=== PATIENT | female | born 1990 | race Caucasian/White ===

== ENCOUNTER 2017-10-22 12:07 | Emergency (ER) | payer OTHER ==
--- OUTSIDE RECORDS SUMMARY | 2017-10-22 12:15 | XMS REPORT ---
:1990 External Reference #:[id number] Author Organization [facility] Address [address] [place] [address] Phone [phone] Care Team Providers Name Role Phone Bhakti Flood MD Care Team Information Flower Arranger Unavailable Payers Type Date Identification Numbers Payment Provider Subscriber Commercial Policy Number: [id number] [facility] Ann Gómez PayID: [id number] [address] [place] [address] [facility] Policy Number: [id number] Medicaid/[facility] Ann Gómez PayID: [id number] [address] [place] [address] Problems Date Description Provider Status Onset: 08/10/2016 Anxiety state Tobi Marrero JAY Active Onset: 08/10/2016 Viral hepatitis C Tobi Marrero [employer]WAITRESS Active Onset: 08/10/2016 Insomnia Tobi Marrero Active Onset: 08/10/2016 Tobacco user Tobi MarreroP Active Family History Date Family Member(s) Problem(s) Comments General Heart Disease Father 60 Mother 52 Children 3 First Daughter 4 Second Daughter 3 Third Daughter 10 Months OF 07/2016 Siblings None Social History Type Date Description Comments Marital Status Civil Partner Pets 1 cat Work Status Unemployed ETOH Use Denies alcohol use Smoking Patient is a former smoker Currently Active Patient is currently sexually active Allergies, Adverse Reactions, Alerts Date Description Reaction Status Severity Comments 07/24/2016 NKDA active Medications Medication Date Status Form Strength Qnty SIG Indications Ordering Provider Azithromycin 10/20/ Hx Tablets 250mg 6tabs z corey uad J20.9 Remigio, 2018 - Bhakti Stokes 10/24/ Prashanth 2018 Betamethasone 09/21/ Active Cream 0.05% 15gm apply to L20.9 [facility], Dipropionate 2018 affected [facility] M., area three M.D. times a day as needed Flonase Allergy 06/21/ Active Suspension 50mcg/Act 9.900 1 puff H69.90 [facility], Relief 2017 ml twice a day Ahmad M., as needed M.D. each nostril Ibuprofen 04/29/ Active Tablets 800mg 90tab 1 by mouth M25.561 [facility], 2017 s three times Ahmad M., a day as M.D. needed Keflex 07/27/ Hx Capsules 500mg 30cap 1 by mouth M25.561 [facility], 2018 - s three times Ahmad M., 08/06/ a day M.D. 2018 Bacitracin 07/27/ Hx Ointment 500Unit/G 30gm apply to M25.561 [facility], (External) 2018 - M affected [facility] 08/06/ area three M.D. 2018 times a day as needed till healed Prednisone 04/29/ Hx Tablets 20mg 18tab 3 tab by M25.561 [facility], 2017 - s mouth daily Ahmad M., 05/08/ 3 days, M.D. 2016 then 2 tab daily x 3 d , then 1 tab daily 3d No Active 10/08/ Hx Unknown Medications 2016 - 2016 Amoxicillin 10/08/ Hx Tablets 500mg 40tab 2 by mouth Remigio, 2017 - s twice a day Ahmad M., 10/16/ M.D. 2016 Amoxicillin 08/12/ Hx Tablets 500mg 30tab 1 by mouth Remigio, 2017 - s three times Ahmad M., 09/16/ a day M.D. 2016 Azithromycin 08/10/ Hx Tablets 250mg 6tabs take two [facility], 2017 - tablets by Ahmad M., 08/12/ mouth as M.D. 2016 one dose on the first day then take one daily thereafter x 4 days Amoxicillin 07/24/ Hx Tablets 500mg 30tab 1 by mouth Remigio, 2017 - s three times Ahmad M., 08/03/ a day M.D. 2016 Vital Signs Date Vital Result Comment 10/20/2017 BP Systolic 120 mmHg BP Diastolic 62 mmHg Height 67 inches 5'7" Weight 165.00 lb BMI (Body Mass Index) 25.8 kg/m2 Heart Rate 82 /min Body Temperature 98.0 F Respiratory Rate 18 /min 09/21/2017 BP Systolic 124 mmHg BP Diastolic 78 mmHg Height 67 inches 5'7" Weight 158.00 lb BMI (Body Mass Index) 24.7 kg/m2 Heart Rate 83 /min Respiratory Rate 18 /min 07/27/2017 BP Systolic 114 mmHg BP Diastolic 60 mmHg Height 67 inches 5'7" Weight 154.00 lb BMI (Body Mass Index) 24.1 kg/m2 Heart Rate 106 /min Body Temperature 98.6 F Respiratory Rate 18 /min 06/21/2017 BP Systolic 108 mmHg BP Diastolic 68 mmHg Height 67 inches 5'7" Weight 159.00 lb BMI (Body Mass Index) 24.9 kg/m2 Heart Rate 63 /min Respiratory Rate 18 /min 05/05/2017 BP Systolic 118 mmHg BP Diastolic 62 mmHg Height 67 inches 5'7" Weight 165.00 lb BMI (Body Mass Index) 25.8 kg/m2 Heart Rate 68 /min Respiratory Rate 18 /min 04/29/2017 BP Systolic 110 mmHg BP Diastolic 62 mmHg Height 67 inches 5'7" Weight 165.00 lb BMI (Body Mass Index) 25.8 kg/m2 Heart Rate 64 /min Respiratory Rate 16 /min 10/08/2016 BP Systolic 120 mmHg BP Diastolic 62 mmHg Height 67 inches 5'7" Weight 167.00 lb BMI (Body Mass Index) 26.2 kg/m2 Heart Rate 71 /min Body Temperature 97.7 F Respiratory Rate 18 /min 08/10/2016 BP Systolic 110 mmHg BP Diastolic 70 mmHg Height 67 inches 5'7" Weight 163.00 lb BMI (Body Mass Index) 25.5 kg/m2 Heart Rate 82 /min Respiratory Rate 18 /min 07/24/2016 BP Systolic 104 mmHg BP Diastolic 70 mmHg Height 67 inches 5'7" Weight 167.00 lb BMI (Body Mass Index) 26.2 kg/m2 Heart Rate 76 /min Respiratory Rate 20 /min Results Test Date Test Result H/L Range Note Monitor 14-Drug 08/10/2016 Amphetamine Screen, Negative ng/mL Cutoff= 1000 1 Class Profile Urine (MW) Barbiturates Screen, Urine Negative ng/mL Mwzwih=454 1 Benzodiazepines Screen, Urine Negative ng/mL Gotxjc=587 1 Cannabinoid Screen, Urine Negative ng/mL Cutoff=20 1 Cocaine (Metab.) Screen, Urine Negative ng/mL Eghwof=461 1 Opiate Screen, Urine Negative ng/mL Bnfnht=680 1, 2 Oxycodone/Oxymorphone, Urine Negative ng/mL Qxmhwa=030 1, 3 Phencyclidine Screen, Urine Negative ng/mL Cutoff=25 1 Methadone Screen, Urine Negative ng/mL Arhoph=983 1 Propoxyphene Screen, Urine Negative ng/mL Psdhqg=840 1 Meperidine Screen, Urine Negative ng/mL Dnscse=226 1, 4 Tramadol Screen, Urine Negative ng/mL Ewozai=100 1 Fentanyl, Urine Negative pg/mL Bbvgeb=1497 1, 5 Buprenorphine, Urine Negative ng/mL Cutoff=10 1 Creatinine, Urine 178.8 mg/dL 20.0-300.0 1 Specific Pierson 1.029 1 pH, Urine 6.4 4.5-8.9 1 Please Note: See Comment: 1, 6 Laboratory test finding 08/10/2016 PDF [id number] SEE IMAGE 1 1 [id number] 2 Opiate test includes Codeine, Morphine, Hydromorphone, Hydrocodone. 3 Test includes Oxycodone and Oxymorphone 4 This test was developed and its performance characteristics determined by [employer]. It has not been cleared or approved by the Food and Drug Administration. 5 Test includes Fentanyl and Norfentanyl This test was developed and its performance characteristics determined by [employer]. It has not been cleared or approved by the Food and Drug Administration. 6 Drug-test results should be interpreted in the context of clinical information. Patient metabolic variables, specific drug chemistry, and specimen characteristics can affect test outcome. Technical consultation is available if a test result is inconsistent with an expected outcome. ([email or web address] or call toll-free [phone]) Drug brands, if listed herein, are trademarks of their respective owners. Procedures Date CPT Code Description Status 10/20/2017 38982 Spirometry Completed 10/20/2017 35607 Tympanometry Completed 04/29/2017 58786 Tympanometry Completed 10/08/2016 75337 Spirometry Completed 10/08/2016 39437 Tympanometry Completed 08/10/2016 86782 Tympanometry Completed 07/24/2016 18470 Visual Screening Test Completed 07/24/2016 87675 Tympanometry Completed 07/24/2016 65996 Audiometry, Bekesy, Screening Completed Encounters Type Date Location Provider [facility] E/M Dx Office Visit 10/20/2017 9:45a [facility] Bhakti Flood M.D. 11073 M25.561 B18.2 F41.9 J30.9 G47.00 F17.211 L20.9 L66.2 J20.9 J01.40 R06.02 R05 R09.81 H92.03 Office Visit 09/21/2017 3:30p [facility] Bhakti Flood M.D. 32930 M25.561 B18.2 F41.9 J30.9 G47.00 F17.211 L20.9 N64.4 N61.0 L66.2 Office Visit 07/27/2017 9:15a [facility] Bhakti Flood M.D. 02377 M25.561 B18.2 F41.9 J30.9 G47.00 F17.211 L20.9 N64.4 N61.0 Z00.01 Office Visit 06/21/2017 4:15p [facility] Tobi Marrero [employer] WA[employer]/WAITRESS 27226 M25.561 H69.90 Office Visit 05/05/2017 4:00p [facility] Tobi Marrero [employer] WA[employer]/WAITRESS 19104 M25.561 Office Visit 04/29/2017 4:00p [facility] Bhakti Flood M.D. 91632 B18.2 F41.9 J30.9 G47.00 F17.211 M25.561 S83.61xA R05 R09.81 J00 Office Visit 10/08/2016 9:45a [facility] Bhakti Flood M.D. 63692 B18.2 F41.9 J30.9 G47.00 F17.211 H66.92 R05 R06.02 R09.81 J01.40 Office Visit 08/10/2016 11:30a [facility] Tobi Marrero [employer] WAITER/WAITRESS 75957 B18.2 H66.92 F41.9 Office Visit 07/24/2016 10:15a [facility] Bhakti Flood M.D. 71647 Z00.01 L20.9 J30.9 B18.2 G47.00 H66.92 H92.02 F17.211 Z68.26 Plan of Care 10/20/2017 - Bhakti Flood M.D.M25.561 Pain in right kneeComments:EXERCISE/ HEAT /MESSAGEAVOID HEAVY LIFTING WT LOSSTYLENOL OR MOTRIN PRNB18.2 Chronic viral hepatitis CComments:F/U WITH GIF41.9 Anxiety disorder, unspecifiedComments :COUNCELLING AND REASSURANCE RELAXATION TECHNIQUES DISCUSSEDCOUNSELED RE: STRESSORS IN LIFE AVOID ALLENERGY/HIGH CAFFEINE YQQFTGO27.9 Allergic rhinitis, unspecifiedComments:INCREASE PO FLUID USE ANTIHISTAMINE PRN SECOND HAND SMOKING DPBSRMPFTL48.00 Insomnia, unspecifiedComments:COUNCELLING AND REASSURANCE RELAXATION TECHNIQUES DISCUSSED COUNSELED RE: STRESSORS IN LIFE TYLENOLPM OR MOTRIN PM PRNF17.211 Nicotine dependence, cigarettes, in remissionComments: ENCOURAGED TO CONTINUE WITH SMOKING DDJIMNKYPX56.9 Atopic dermatitis, unspecifiedComments:SKIN CARE INSTRUCTIONS LOTION OR BABY OIL 2-3 APPLICATION PER DAYUSE MOISTURIZING SOAPAVOID PROLONGED WATER EXPOSUREAVOID USING HOT WATER IN AFNVSGF98.2 Folliculitis decalvansComments:PKKXWXWDT92.9 Acute bronchitis, unspecifiedNew Medication:Azithromycin 250 mgComments:INCREASE PO NYSCSMFJEC80.40 Acute pansinusitis, unspecifiedComments:INCREASE PO FLUIDTYLENOL OR MOTRIN PRN ANTIHISTAMINE PRNR06.02 Shortness of breathComments: INCREASE PO [id number] CoughComments:INCREASE CLEAR LIQUIDSSTEAMGARGLE WARM SALT H2O TID ROBITUSSIN DM PRNR09.81 Nasal congestionComments:INCREASE PO FLUIDTYLENOL OR MOTRIN PRNREST USE ANTIHISTAMINE PRNH92.03 Otalgia, bilateralComments:INCREASE PO FLUIDTYLENOL OR MOTRIN PRNANTIHISTAMINE PRNREST
[2017-10-22 12:29] VITALS: BP 109/61
--- NOTE | 2017-10-22 15:09 | UC ---
Solomon Glover Gabriel, scribed for Nicole Munoz DO on 10/22/17 at 1304 . Respiratory Complaint HPI - HPI Summary HPI Summary: This patient is a 26 year old F [place] [facility] [place] a chief complaint of a green productive cough that began a week ago. Patient reports sneezing, nasal drainage, sinus congestion, trouble sleeping, and ABD pain. Patient denies sore throat, ear pain, CP, SOB, fever, chills, n/v, and rashes. Pt was seen by Dr. Chaparro two days ago for the same symptoms and she was given a Zpack for bronchitis. She contacted Dr. Chaparro because she was concerned with taking the Z pack due to her family history of heart issues as well as it getting into her breast milk. She would like a second opinion on the use of the medication. - History of Current Complaint Chief Complaint: UCRespiratory Stated Complaint: CONGESTED,COUGH Time Seen by Provider: 10/22/17 12:43 Hx Obtained From: Patient Hx Last Menstrual Period: 10/17/17 Onset/Duration: Still Present Timing: Constant Severity Initially: Moderate Severity Currently: Moderate Pain Intensity: 0 Character: Cough: Productive Associated Signs And Symptoms: Positive: Negative - sore throat, ear pain, CP, SOB, fever, chills, n/v, and rashes. Negative: Fever, Chills - Allergies/Home Medications Allergies/Adverse Reactions: Allergies Allergy/AdvReac Type Severity Reaction Status Date / Time No Known Allergies Allergy Verified 10/22/17 12:30 PMH/Surg Hx/FS Hx/Imm Hx Other History Of: Hepatitis C - Surgical History Surgical History: None - Family History Known Family History: Positive: Cardiac Disease, Diabetes, Other - cancer and CVA - Social History Lives: With Family Alcohol Use: None Substance Use Type: None Substance Use Comment - Amount & Last Used: December 27 2014 Smoking Status (MU): Former Smoker Type: Cigarettes Amount Used/How Often: quit in 01/2015 Have You Smoked in the Last Year: No - Immunization History Most Recent Influenza Vaccination: 04/2015 Most Recent Tetanus Shot: 07/27/2013 Most Recent Pneumonia Vaccination: never Review of Systems Constitutional: Other - trouble sleeping Respiratory: Cough, Other - sneezing, nasal drainage, sinus congestion Gastrointestinal: Abdominal Pain All Other Systems Reviewed And Are Negative: Yes Physical Exam - Summary Physical Exam Summary: Appearance: Well-Appearing, No Pain Distress, Well-Nourished Eyes: conjunctiva clear, no discharge ENT: Hearing grossly normal, no muffled/hoarse voice. TMs normal, negative tonsillar swelling, negative tonsillar exudate, negative trismus. Neck: Normal, Supple Respiratory/Lung Sounds: Lungs clear, Normal breath sounds, No respiratory distress, No accessory muscle use Cardiovascular: RRR, No murmur Abdomen, Soft, no guarding, not distended Mildly tender in suprapubic region Bowel Sounds Present Musculoskeletal: Normal Neurological: Alert, muscle tone normal Psychiatric:Normal, age appropriate behavior Skin: Normal, Warm, Dry, Normal color Triage Information Reviewed: Yes Vital Signs: Initial Vital Signs Temp 98.2 F 10/22/17 12:24 Pulse 58 10/22/17 12:24 Resp 18 10/22/17 12:24 BP 109/61 10/22/17 12:24 Pulse Ox 99 10/22/17 12:24 Vital Signs Reviewed: Yes UC Diagnostic Evaluation - Laboratory O2 Sat by Pulse Oximetry: 99 Respiratory Course/Dx - Course Course Of Treatment: This patient is a 26 year old F presenting [place] [facility] [place] a chief complaint of a green productive cough that began a week ago. Patient reports sneezing, nasal drainage, sinus congestion, trouble sleeping, and ABD pain. Patient denies sore throat, ear pain, CP, SOB, fever, chills, n/v, and rashes. Pt was seen by Dr. Chaparro two days ago for the same symptoms and she was given a Zpack for bronchitis. She contacted Dr. Chaparro because she was concerned with taking the Z pack due to her family history of heart issues as well as it getting into her breast milk. She would like a second opinion on the use of the medication. UA was negative for UTI. Patient will be discharged with prescription for Augmentin and follow up from PCP. The patient is agreeable with this plan. Medications reviewed. - Differential Dx/Diagnosis Provider Diagnoses: Sinusitis and acute cough Discharge - Sign-Out/Discharge Documenting (check all that apply): Discharge - Discharge Plan Condition: Stable Disposition: HOME Prescriptions: Amoxicillin/Clavulanate TAB* [Augmentin TAB 875*] 875 mg PO BID #20 tab Patient Education Materials: Sinusitis (ED), Acute Cough (ED) Referrals: Bhakti Flood MD [Primary Care Provider] - If Needed Additional Instructions: TRY USING THE NETTI POT IN THE MORNINGS DISCUSSED. YOU MUST ALWAYS USE CLEAN WATER. REMEMBER, POSTURE IS AN IMPORTANT FACTOR IN SINUS DRAINAGE. MOVE YOUR NECK, BREATHE. ANTIBIOTICS ARE NOT CURRENTLY INDICATED FOR YOUR CONDITION. HOWEVER, IF YOUR SYMPTOMS WORSEN OR PERSIST FOR OVER THE NEXT 3-5 DAYS, YOU CAN TAKE THE FOLLOWING MEDICATION: AUGMENTIN: Augmentin is a mixture of amoxicillin and clavulanate. Amoxicillin is a member of the penicillin family. It covers the germs likely to cause ear, bronchial, and urinary infections better than plain penicillin. The addition of clavulanate allows it to cover staph infections of the skin, as well as resistant cases of ear and sinus infections. Your physician has chosen Augmentin for you because of the special nature of your situation. Augmentin is best taken with meals. Nausea after taking the medication is rare, but can occur. Diarrhea can occur, particularly in small children. Vaginal yeast infections, and oral thrush in infants are also common. Contact your physician if these problems occur. Allergy to penicillins is common. If you have had an allergic reaction to any drug of the penicillin family, you should never take any other penicillin. Notify your doctor at once if you develop hives, shortness of breath, swelling, or faintness. ANYTIME YOU TAKE AN ANTIBIOTIC, IT IS IMPORTANT TO REPLENISH THE BODY'S SUPPLY OF "GOOD BACTERIA." YOU CAN GET GOOD BACTERIA FROM HIGH QUALITY CULTURED FOODS SUCH LOCAL YOGURT, SOUR KRAUT, NIC DIXIE, NATURALLY FERMENTED PICKLES AND PROBIOTIC DRINKS. YOU CAN ALSO GET GOOD BACTERIA FROM A PROBIOTIC SUPPLEMENT. DO NOT TAKE THE ZPAK. - Billing Disposition and Condition Condition: STABLE Disposition: HOME The documentation as recorded by the Solomon erwin Gabriel accurately reflects the service I personally performed and the decisions made by , Nicole Munoz DO.
== END 2017-10-22 13:42 | disposition home or self-care (01) ==
LOC: UCEAST 12:07
DX: J32.9 Chronic sinusitis, unspecified (principal); R05 Cough; Z87.891 Personal history of nicotine dependence
CPT/HCPCS: 81003; 99212; G0463

== ENCOUNTER 2017-11-28 13:19 | Emergency (ER) | payer SELFPAY ==
[2017-11-28] MEDS ORDERED: NS 0.9% 1000 ML* 1,000 ML IV ONE (13:22)
[2017-11-28 14:08] LABS: ABS Basophils 0 10^3/ul (0-0.2); ABS Eosinophils 0.1 10^3/ul (0-0.6); ABS Lymphocytes 2.3 10^3/ul (1.0-4.8); ABS Monocytes 0.4 10^3/ul (0-0.8); ABS Neutrophils 5.1 10^3/ul (1.5-7.7); ABS Nucleated RBC 0 10^3/ul; Eosinophil % 0.7 % (0-6); Hematocrit 38 % (35-47); Hemoglobin 13.2 g/dl (12.0-16.0); Lymphocyte % 28.7 % (25-47); Mean Corpuscular HGB Conc 35 g/dl (31-36); Mean Corpuscular Hemoglobin 32 pg (27-31); Mean Corpuscular Volume 93 fL (80-97); Mean Platelet Volume 7.3 um3 (7.4-10.4); Nucleated Red Blood Cells % 0.1; Platelet Count 229 10^3/ul (150-450); Red Cell Distribution Width 12 % (10.5-15)
[2017-11-28 14:09] LABS: Urine Appearance Cloudy; Urine Blood Negative (Negative); Urine Color Yellow; Urine Ketones Negative (Negative); Urine Protein Negative (Negative); Urine Specific Gravity 1.019 (1.010-1.030); Urine Urobilinogen Negative (Negative)
[2017-11-28 14:16] LABS: INR 0.98 (0.77-1.02)
[2017-11-28 14:30] LABS: EGFR Non-African American 91.3 (>60)
--- NOTE | 2017-11-28 16:17 | RAD ---
Indication: Six-week with bleeding. Real-time sonography of the was performed. The study was performed with endovaginal technique. There is a intrauterine gestational sac measuring 4 mm corresponding to gestational age of 4 weeks 6 days. No pole is identified. This may be due to early gestational age and follow-up exam and serial beta hCG is suggested. Right ovary measures 3.5 x 2.2 x 3.7 cm. Left ovary measures 2.4 x 2.0 x 3.1 cm. Complex right ovarian cyst measuring up to 2.3 cm is present. IMPRESSION: 4 weeks 6 days Intrauterine gestational sac is identified. pole is not identified. Follow-up exam is suggested.
[2017-11-28 17:06] VITALS: BP 115/63
--- NOTE | 2017-11-29 00:39 | ED ---
Chloé Glover Julia, scribed for Venita Masters MD on 11/28/17 at 1324 . - HPI Summary HPI Summary: This patient is a approx 6 week 27 year old F [place] [facility] by her mother with a chief complaint of uterine cramping and bleeding beginning around 11:00 today . Patient denies dysuria, CP, and SOB. The patient rates the pain 5/10 in severity. She will use Dr. Nathan for her OB physician. LNMP was 10/17/17. confirmed by 5 home tests. EMS reports a pulse of 80BPM and a systolic BP of 128. Pt states she is Rh positive. - History of Current Complaint Stated Complaint: 6 WKS PREG/CRAMPING & BLEEDING Time Seen by Provider: 11/28/17 13:21 Hx Obtained From: Patient Chief Complaint: Pain, Vaginal Bleeding Onset/Duration: Started Hours Ago, Atraumatic, Still Present Timing: Constant Severity: Mild Current Severity: Mild Pain Intensity: 5 Location of Pain: Suprapubic Character: Cramping Aggravating Factors: Nothing Alleviating Factors: Nothing Associated Signs and Symptoms: Positive: Vaginal Bleeding or Discharge - bleeding - Assessment Hx Now: Yes Hx : 4 Hx Para: 3 SAB: 0 IEA: 0 History of Ectopic : No Hx Pelvic Inflammatory Disease: No Vaginal Bleeding Amount: Spotting Hx Hysterectomy: No History of STI/STD: No - Additional Pertinent History Maternal Blood Type and Rh: A Positive - Allergies/Home Medications Allergies/Adverse Reactions: Allergies Allergy/AdvReac Type Severity Reaction Status Date / Time No Known Allergies Allergy Verified 12/02/17 12:19 Home Medications: Home Medications NK [No Home Medications Reported] 11/28/17 [History Confirmed 11/28/17] PMH/Surg Hx/FS Hx/Imm Hx Previously Healthy: Yes Endocrine/Hematology History: Denies: Hx Diabetes, Hx Thyroid Disease Cardiovascular History: Denies: Hx Hypertension, Hx Pacemaker/ICD Respiratory History: Denies: Hx Asthma, Hx Chronic Obstructive Pulmonary Disease (COPD) GI History: Denies: Hx Ulcer History: Reports: Other Problems/Disorders - Hepatitis C positive Sensory History: Denies: Hx Hearing Aid Psychiatric History: Reports: Hx Anxiety, Hx Inpatient Treatment - 2007, 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 - Surgical History Surgery Procedure, Year, and Place: wisdom teeth Infectious Disease History: Reports: Hx Hepatitis - hep c Denies: Hx Clostridium Difficile, Hx Human Immunodeficiency Virus (HIV), Hx of Known/Suspected MRSA, Hx Shingles, Hx Tuberculosis, History Other Infectious Disease - Family History Known Family History: Positive: Cardiac Disease, Diabetes, Other - cancer and CVA - Social History Lives: With Family Alcohol Use: None Substance Use Type: Reports: None Substance Use Comment - Amount & Last Used: December 27 2014 Smoking Status (MU): Former Smoker Type: Cigarettes Amount Used/How Often: quit in 01/2015 Have You Smoked in the Last Year: No Review of Systems Constitutional: Negative Negative: Chest Pain Negative: Shortness Of Breath Gastrointestinal: Negative Positive: pain, other - vaginal bleeding . Negative: dysuria Musculoskeletal: Negative Skin: Negative Neurological: Negative Psychological: Normal All Other Systems Reviewed And Are Negative: Yes Physical Exam - Summary Physical Exam Summary: Appearance: well appearing, minimal pain distress, Well-nourished, smiles, ambulatory Skin: Warm, color reflects adequate perfusion Head: Normal Head/Face inspection, Atraumatic Eyes: Conjunctiva clear ENT: Normal inspection Neck: Supple, no nodes, no JVD. Respiratory: Lungs clear, Normal breath sounds, no respiratory distress Cardio: RRR, No murmur, pulses normal, brisk capillary refill Abdomen: soft, nontender, no masses, fundus non palpable Bowel sounds: present Musculoskeletal: Strength Intact/ ROM intact. No calf tenderness. No edema. Psychological: Normal Neuro: Alert, muscle tone normal, no focal deficit - Physical Exam Triage Information Reviewed: Yes Vital Signs Reviewed: Yes Diagnostics - Laboratory Result Diagrams: 11/28/17 13:55 11/28/17 13:55 Lab Statement: Any lab studies that have been ordered have been reviewed, and results considered in the medical decision making process. - Additional Comments Diagnostic Additional Comments: A Transvaginal US reveals, as per radiologist, 4 weeks 6 days Intrauterine gestational sac is identified. pole is not identified. Follow-up exam is suggested. ED Physician has reviewed this report. Re-Evaluation - Re-Evaluation 1 Re-Evaluation Time: 16:44 Comment: PT is given US results. No further cramping. Light spotting seen in underwear. No further bleeding in ED. Course/Dx - Course Course Of Treatment: 27 y/o F presents to the ED with uterine cramping and vaginal bleeding. Pt reports 6 weeks . . Despite pts stated length a Transvaginal US reveals: 4 weeks 6 days Intrauterine gestational sac is identified. pole is not identified. Pt is given IV fluids. While in ED pt's pain improves and there is no further bleeding. Patient 's underwear showed minimal spotting. Dr. Swain states the patient should called the office in the morning and they will be seen in the next few days. PT IS BLOOD TYPE A+, does not need rhogam. Pt's B HCG level is 733 and needs serial measurements. - Differential Diagnosis/HQI/PQRI: Incomplete , Early , Vaginal Bleeding - Diagnoses Provider Diagnoses: , Vaginal bleeding in patient at less than 20 weeks gestation - Provider Notifications Discussed Care Of Patient With: Hannah PANDEY Time Discussed With Above Provider: 16:50 Instructed by Provider To: Other - Dr. Swain is covering for Dr. Nathan and the patient should call the office tomorrow to be seen in the next couple of days. Discharge - Sign-Out/Discharge Documenting (check all that apply): Discharge/Admit/Transfer - discharge - Discharge Plan Condition: Stable Disposition: HOME Patient Education Materials: Ectopic (DC), Threatened Miscarriage (ED ), (ED) Referrals: Bhakti Flood MD [Primary Care Provider] - Vishal Nathan MD [Medical Doctor] - 2 Days Additional Instructions: We have given you a copy of your ultrasound report. We talked to Dr. Swain who is covering Dr. Nathan today. Dr. Swain recommends that you call the office in the morning and arrange to be seen in the next few days. You are blood type A positive, so you do not need rhogam. We have given you instructions that talk about ectopic , and threatened miscarriage but we have not definitely diagnosed that today. It is possible that this is just an early , so Dr. Nathan will want to follow you closely to see how the serial beta HCG ( hormone) levels progress. Return to the ER if you have new or worsening symptoms. - Billing Disposition and Condition Condition: STABLE Disposition: HOME The documentation as recorded by the Chloé erwin Julia accurately reflects the service I personally performed and the decisions made by , Venita Masters MD.
== END 2017-11-28 17:08 | disposition home or self-care (01) ==
LOC: ED 13:19
DX: O20.9 Hemorrhage in early pregnancy, unspecified (principal); Z3A.01 Less than 8 weeks gestation of pregnancy; Z87.891 Personal history of nicotine dependence
CPT/HCPCS: 36415; 76817; 80053; 81003; 83605; 84702; 85025; 85610; 85730; 86850; 86900; 86901; 96360; 99282

== ENCOUNTER 2017-12-02 12:11 | Emergency (ER) | payer SELFPAY ==
[2017-12-02 13:14] LABS: ABS Basophils 0 10^3/ul (0-0.2); ABS Eosinophils 0 10^3/ul (0-0.6); ABS Lymphocytes 1.7 10^3/ul (1.0-4.8); ABS Monocytes 0.5 10^3/ul (0-0.8); ABS Neutrophils 5.5 10^3/ul (1.5-7.7); ABS Nucleated RBC 0 10^3/ul; Eosinophil % 0.4 % (0-6); Hematocrit 36 % (35-47); Hemoglobin 12.4 g/dl (12.0-16.0); Lymphocyte % 21.6 % (25-47); Mean Corpuscular HGB Conc 35 g/dl (31-36); Mean Corpuscular Hemoglobin 32 pg (27-31); Mean Corpuscular Volume 93 fL (80-97); Mean Platelet Volume 7.1 um3 (7.4-10.4); Nucleated Red Blood Cells % 0; Platelet Count 196 10^3/ul (150-450); Red Blood Count 3.85 10^6/ul (4.0-5.4); Red Cell Distribution Width 12 % (10.5-15); White Blood Count 7.7 10^3/ul (3.5-10.8)
--- NOTE | 2017-12-02 14:36 | RAD ---
Indication: 5.5 weeks with vaginal bleeding. Real-time sonography of the pelvis was performed utilizing endovaginal technique. There is an intrauterine gestational sac measuring 0.36 cm corresponding to gestational age of 4 weeks 6 days. No pole is identified. The right ovary measures 3.6 x 1.9 x 1.8 cm. Left ovary measures 4.4 x 1.4 x 1.4 cm. There is Echo complex area in the right ovary measuring 2.1 x 1.3 x 1.4 cm. IMPRESSION: There is an intrauterine gestational sac with a gestational age of 4 weeks 6 days however no pole is identified likely due to early gestational age. Follow-up is suggested.
[2017-12-02 16:28] VITALS: BP 00/00
--- NOTE | 2017-12-03 10:13 | ED ---
Cristopher Glover Jennifer, scribed for Michael Robertson MD on 12/02/17 at 1316 . - HPI Summary HPI Summary: The patient is a 27 year old female who presents with bright red bleeding today while 5.5 weeks . The patient reports she has had on-and-off spotting, but it turned into light bleeding today. She denies cramping, clots, pain, and vomiting. This is her fourth . - History of Current Complaint Chief Complaint: EDOBProblems Stated Complaint: OB PROBLEM/5 WEEKS Hx Obtained From: Patient Chief Complaint: Vaginal Bleeding Onset/Duration: Started Hours Ago, Still Present Timing: Constant Severity: Mild Current Severity: None Pain Intensity: 0 Location of Pain: None Character: None Aggravating Factors: Nothing Alleviating Factors: Nothing Associated Signs and Symptoms: Positive: Other: - bright red bleeding. NEGATIVE : cramping, clots, pain, vomiting - Assessment Hx Now: Yes SAB: 0 IEA: 0 Hx Hysterectomy: No - Additional Pertinent History Maternal Blood Type and Rh: A Positive - Allergies/Home Medications Allergies/Adverse Reactions: Allergies Allergy/AdvReac Type Severity Reaction Status Date / Time No Known Allergies Allergy Verified 12/02/17 12:19 PMH/Surg Hx/FS Hx/Imm Hx Endocrine/Hematology History: Denies: Hx Diabetes, Hx Thyroid Disease Cardiovascular History: Denies: Hx Hypertension, Hx Pacemaker/ICD Respiratory History: Denies: Hx Asthma, Hx Chronic Obstructive Pulmonary Disease (COPD) GI History: Denies: Hx Ulcer History: Reports: Other Problems/Disorders - Hepatitis C positive, Hx Pre- eclampsia Sensory History: Denies: Hx Hearing Aid Psychiatric History: Reports: Hx Anxiety, Hx Inpatient Treatment - 2007, 2009 BSU, Hx Community Mental Health Tx - Hx of being treated at [facility] Other Psychiatric Issues/Disorders - anxiety 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 - Surgical History Surgery Procedure, Year, and Place: wisdom teeth Infectious Disease History: No Infectious Disease History: Reports: Hx Hepatitis - hep c Denies: Hx Clostridium Difficile, Hx Human Immunodeficiency Virus (HIV), Hx of Known/Suspected MRSA, Hx Shingles, Hx Tuberculosis, History Other Infectious Disease, Traveled Outside the [place] in Last 30 Days - Family History Known Family History: Positive: Cardiac Disease, Diabetes, Other - cancer and CVA - Social History Alcohol Use: None Substance Use Type: Reports: None Substance Use Comment - Amount & Last Used: December 27 2014 Smoking Status (MU): Former Smoker Type: Cigarettes Amount Used/How Often: quit in 01/2015 Have You Smoked in the Last Year: No Review of Systems Negative: Abdominal Pain, Vomiting Genitourinary: Other - vaginal bleednig Negative: Myalgia All Other Systems Reviewed And Are Negative: Yes Physical Exam - Summary Physical Exam Summary: Appearance: Well-appearing, Well-nourished Skin: Warm Eyes: Normal ENT: Normal Neck: Supple, nontender Respiratory: Clear to auscultation Cardiovascular: Normal S1, S2. No murmurs. Normal distal pulses in tibial and radial bilaterally. Abdomen: Soft, nontender Musculoskeletal: Normal, Strength/ROM Intact Neurological: Normal, A&Ox3 Psychiatric: Normal General: No acute distress - Physical Exam Triage Information Reviewed: Yes Vital Signs Reviewed: Yes Diagnostics - Vital Signs Vital Signs Temp Pulse Resp BP Pulse Ox 12/02/17 12:16 99.8 F 75 16 118/67 98 - Laboratory Lab Results: Lab Results 12/02/17 Range/Units 13:04 WBC 7.7 (3.5-10.8) 10^3/ul RBC 3.85 L (4.0-5.4) 10^6/ul Hgb 12.4 (12.0-16.0) g/dl Hct 36 (35-47) % MCV 93 (80-97) fL MCH 32 H (27-31) pg MCHC 35 (31-36) g/dl RDW 12 (10.5-15) % Plt Count 196 (150-450) 10^3/ul MPV 7.1 L (7.4-10.4) um3 Neut % (Auto) 71.4 (38-83) % Lymph % (Auto) 21.6 L (25-47) % [place] % (Auto) 6.2 (0-7) % Eos % (Auto) 0.4 (0-6) % Baso % (Auto) 0.4 (0-2) % Absolute Neuts (auto) 5.5 (1.5-7.7) 10^3/ul Absolute Lymphs (auto) 1.7 (1.0-4.8) 10^3/ul Absolute Monos (auto) 0.5 (0-0.8) 10^3/ul Absolute Eos (auto) 0 (0-0.6) 10^3/ul Absolute Basos (auto) 0 (0-0.2) 10^3/ul Absolute Nucleated RBC 0 10^3/ul Nucleated RBC % 0 Result Diagrams: 12/02/17 13:04 Lab Statement: Any lab studies that have been ordered have been reviewed, and results considered in the medical decision making process. - Additional Comments Diagnostic Additional Comments: Transvaginal Ultrasound. Interpreted by a radiologist. IMPRESSION: There is an intrauterine gestational sac with a gestational age of 4 weeks 6 days however no pole is identified likely due to early gestational age. Follow-up is suggested. Dr. Robertson has reviewed this report. Course/Dx - Course Assessment/Plan: gestational sac without a pole seen on ultrasound, beta hCG lower than on last visit, likely diagnosis incomplete . Before I was able to reexamine the patient, patient left AGAINST MEDICAL ADVICE, stating that she had to potato picker her children. We instructed the patient to seek outpatient follow-up with counter cutter and return for any worsening or concerning symptoms. Patient in no acute distress, no other lab abnormalities. - Diagnoses Provider Diagnoses: Incomplete Discharge - Sign-Out/Discharge Documenting (check all that apply): Discharge/Admit/Transfer - Discharge Plan Condition: Stable Disposition: AGAINST MEDICAL ADVICE Referrals: Bhakti Flood MD [Primary Care Provider] - - Billing Disposition and Condition Condition: STABLE Disposition: AMA The documentation as recorded by the Cristopher erwin Jennifer accurately reflects the service I personally performed and the decisions made by Marcelo lobo Dong, MD.
== END 2017-12-02 16:23 | disposition left against medical advice (07) ==
LOC: ED 12:11
DX: O03.4 Incomplete spontaneous abortion without complication (principal); Z87.891 Personal history of nicotine dependence; Z53.21 Procedure and treatment not carried out due to patient leaving prior to being seen by health care provider
CPT/HCPCS: 36415; 76817; 84702; 85025; 99282

== ENCOUNTER → 2018-06-14 | Emergency (ER) | payer OTHER ==
[2018-06-14 17:03] LABS: ABS Basophils 0.1 10^3/ul (0-0.2); ABS Eosinophils 0 10^3/ul (0-0.6); ABS Lymphocytes 2.5 10^3/ul (1.0-4.8); ABS Monocytes 0.4 10^3/ul (0-0.8); ABS Neutrophils 5.7 10^3/ul (1.5-7.7); ABS Nucleated RBC 0 10^3/ul; Eosinophil % 0.5 %; Hematocrit 36 % (35-47); Hemoglobin 12.7 g/dl (12.0-16.0); Lymphocyte % 28.9 %; Mean Corpuscular HGB Conc 36 g/dl (31-36); Mean Corpuscular Hemoglobin 33 pg (27-31); Mean Corpuscular Volume 92 fL (80-97); Mean Platelet Volume 7.4 fL (7.4-10.4); Nucleated Red Blood Cells % 0; Platelet Count 219 10^3/ul (150-450); Red Blood Count 3.88 10^6/ul (4.00-5.40); Red Cell Distribution Width 12 % (10.5-15); White Blood Count 8.7 10^3/ul (3.5-10.8)
[2018-06-14 17:04] LABS: Urine Appearance Cloudy; Urine Blood Negative (Negative); Urine Color Straw; Urine Ketones Negative (Negative); Urine Protein Negative (Negative); Urine Red Blood Cell Absent (Absent); Urine Specific Gravity 1.005 (1.010-1.030); Urine Urobilinogen Negative (Negative); Urine White Blood Cell 2+(11-20/hpf) (Absent)
[2018-06-14 17:23] LABS: EGFR Non-African American 107.2 (>60)
--- NOTE | 2018-06-14 18:43 | ED ---
Abdominal Pain/Female - HPI Summary HPI Summary: The pt is a 27 y/o female c/o lower abdominal cramping since 1 day ago. She reports a positive home test. LMP 05/16/18. She notes nausea but denies pain and burning with urination, and vaginal bleeding. [id number] . The pain is rated 4/10 in severity. The pt [place] [facility] and would prefer him. She is unsure of Rh status, but [facility] [place] p's blood type is A+. She reports a PMhx of UTIs with Pg, so she wants to be tested for this. Home Medications Medication Instructions Recorded Confirmed Type NK [No Home Medications Reported] 11/28/17 12/02/17 History - History of Current Complaint Chief Complaint: EDAbdPain Stated Complaint: POSS PREG/CRAMPING Hx Obtained From: Patient, Other: - [facility] [place] Last Menstrual Period: 05/16/18 ?: Yes Onset/Duration: Lasting Days - 1 day, Still Present Timing: Constant Severity Initially: Mild Severity Currently: Mild Pain Intensity: 4 Pain Scale Used: 0-10 Numeric Location: Diffuse - Lower abd Radiates: No Character: Cramping Aggravating Factor(s): Nothing Alleviating Factor(s): Nothing Associated Signs and Symptoms: Positive: Urinary Symptoms, Nausea. Negative: Vaginal Bleeding, Vaginal Discharge Allergies/Adverse Reactions: Allergies Allergy/AdvReac Type Severity Reaction Status Date / Time No Known Allergies Allergy Verified 12/02/17 12:19 PMH/Surg Hx/FS Hx/Imm Hx Previously Healthy: No Endocrine/Hematology History: Denies: Hx Diabetes, Hx Thyroid Disease Cardiovascular History: Denies: Hx Hypertension, Hx Pacemaker/ICD Respiratory History: Denies: Hx Asthma, Hx Chronic Obstructive Pulmonary Disease (COPD) GI History: Denies: Hx Ulcer History: Reports: Other Problems/Disorders - Hepatitis C positive, Hx Pre- eclampsia, UTIs Sensory History: Denies: Hx Hearing Aid Psychiatric History: Reports: Hx Anxiety, Hx Inpatient Treatment - 2007, 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, Hx Community Mental Health Tx - Hx of being treated at [facility] Other Psychiatric Issues/Disorders - anxiety 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 - Surgical History Surgery Procedure, Year, and Place: wisdom teeth Infectious Disease History: Yes Infectious Disease History: Reports: Hx Hepatitis - hep c Denies: Hx Clostridium Difficile, Hx Human Immunodeficiency Virus (HIV), Hx of Known/Suspected MRSA, Hx Shingles, Hx Tuberculosis, History Other Infectious Disease, Traveled Outside the [place] in Last 30 Days - Family History Known Family History: Positive: Cardiac Disease, Diabetes, Other - cancer, CVA and thyroid problems - Social History Occupation: Employed Full-time Lives: With Family Alcohol Use: None Substance Use Type: Reports: None Substance Use Comment - Amount & Last Used: December 27 2014 Smoking Status (MU): Former Smoker Type: Cigarettes Amount Used/How Often: quit in 01/2015 Have You Smoked in the Last Year: No Review of Systems Constitutional: Negative Cardiovascular: Negative Respiratory: Negative Positive: Abdominal Pain, Nausea Genitourinary: Negative - Vaginal bleeding Negative: pain, urgency Musculoskeletal: Negative Skin: Negative Neurological: Negative Psychological: Normal All Other Systems Reviewed And Are Negative: Yes Physical Exam - Summary Physical Exam Summary: Appearance: Well-appearing, minimal pain distress, well-nourished Skin: Warm, color reflects adequate perfusion, dry Head: Normal Head/Face inspection, atraumatic Eyes: Conjunctiva clear ENT: Normal inspection Neck: Supple, no nodes, no JVD Respiratory: Lungs clear, normal breath sounds, no respiratory distress Cardio: RRR, No murmur, pulses normal, brisk capillary refill Abdomen: Soft, minimal tenderness in the bilateral lower quadrants, uterus non palpable above pelvic brim Bowel sounds: Present Musculoskeletal: Strength Intact/ROM intact, no calf tenderness, no edema. Psychological: Normal Neuro: Alert, muscle tone normal, no focal deficit Triage Information Reviewed: Yes Vital Signs On Initial Exam: Initial Vitals Temp Pulse Resp BP Pulse Ox 97.8 F 85 18 125/67 97 06/14/18 16:28 06/14/18 16:28 06/14/18 16:28 06/14/18 16:28 06/14/18 16:28 Vital Signs Reviewed: Yes Diagnostics - Vital Signs Vital Signs Temp Pulse Resp BP Pulse Ox 06/14/18 18:23 99 F 82 18 115/58 100 06/14/18 16:28 97.8 F 85 18 125/67 97 - Laboratory Lab Results: Lab Results 11/27/18 11/27/18 11/27/18 Range/Units 16:31 16:55 16:55 WBC 8.7 (3.5-10.8) 10^3/ul RBC 3.88 L (4.00-5.40) 10^6/ul Hgb 12.7 (12.0-16.0) g/dl Hct 36 (35-47) % MCV 92 (80-97) fL MCH 33 H (27-31) pg MCHC 36 (31-36) g/dl RDW 12 (10.5-15) % Plt Count 219 (150-450) 10^3/ul MPV 7.4 (7.4-10.4) fL Neut % (Auto) 65.2 % Lymph % (Auto) 28.9 % [place] % (Auto) 4.8 % Eos % (Auto) 0.5 % Baso % (Auto) 0.6 % Absolute Neuts (auto) 5.7 (1.5-7.7) 10^3/ul Absolute Lymphs (auto) 2.5 (1.0-4.8) 10^3/ul Absolute Monos (auto) 0.4 (0-0.8) 10^3/ul Absolute Eos (auto) 0 (0-0.6) 10^3/ul Absolute Basos (auto) 0.1 (0-0.2) 10^3/ul Absolute Nucleated RBC 0 10^3/ul Nucleated RBC % 0 Sodium 136 (135-145) mmol/L Potassium 3.6 (3.5-5.0) mmol/L Chloride 106 (101-111) mmol/L Carbon Dioxide 24 (22-32) mmol/L Anion Gap 6 (2-11) mmol/L BUN 15 (6-24) mg/dL Creatinine 0.67 (0.51-0.95) mg/dL Est GFR ( Amer) 129.8 (>60) Est GFR (Non-Af Amer) 107.2 (>60) BUN/Creatinine Ratio 22.4 H (8-20) Glucose 112 H (70-100) mg/dL Lactic Acid (0.5-2.0) mmol/L Calcium 9.3 (8.6-10.3) mg/dL Total Bilirubin 0.40 (0.2-1.0) mg/dL AST 29 (13-39) U/L ALT 44 (7-52) U/L Alkaline Phosphatase 45 (34-104) U/L C-Reactive Protein < 1.00 (<8.01) mg/L Total Protein 7.0 (6.4-8.9) g/dL Albumin 4.4 (3.2-5.2) g/dL Globulin 2.6 (2-4) g/dL Albumin/Globulin Ratio 1.7 (1-3) Lipase 11 (11.0-82.0) U/L Beta HCG, Quant 55.98 mIU/mL Urine Color Straw Urine Appearance Cloudy Urine pH 7.0 (5-9) Ur Specific [place] 1.005 L (1.010-1.030) Urine Protein Negative (Negative) Urine Ketones Negative (Negative) Urine Blood Negative (Negative) Urine Nitrate Negative (Negative) Urine Bilirubin Negative (Negative) Urine Urobilinogen Negative (Negative) Ur Leukocyte Esterase 3+ A (Negative) Urine WBC (Auto) 2+(11-20/hpf) A (Absent) Urine RBC (Auto) Absent (Absent) Ur Squamous Epith Cells Present A (Absent) Urine Bacteria Absent (Absent) Urine Glucose Negative (Negative) 06/14/18 Range/Units 16:55 WBC (3.5-10.8) 10^3/ul RBC (4.00-5.40) 10^6/ul Hgb (12.0-16.0) g/dl Hct (35-47) % MCV (80-97) fL MCH (27-31) pg MCHC (31-36) g/dl RDW (10.5-15) % Plt Count (150-450) 10^3/ul MPV (7.4-10.4) fL Neut % (Auto) % Lymph % (Auto) % [place] % (Auto) % Eos % (Auto) % Baso % (Auto) % Absolute Neuts (auto) (1.5-7.7) 10^3/ul Absolute Lymphs (auto) (1.0-4.8) 10^3/ul Absolute Monos (auto) (0-0.8) 10^3/ul Absolute Eos (auto) (0-0.6) 10^3/ul Absolute Basos (auto) (0-0.2) 10^3/ul Absolute Nucleated RBC 10^3/ul Nucleated RBC % Sodium (135-145) mmol/L Potassium (3.5-5.0) mmol/L Chloride (101-111) mmol/L Carbon Dioxide (22-32) mmol/L Anion Gap (2-11) mmol/L BUN (6-24) mg/dL Creatinine (0.51-0.95) mg/dL Est GFR ( Amer) (>60) Est GFR (Non-Af Amer) (>60) BUN/Creatinine Ratio (8-20) Glucose (70-100) mg/dL Lactic Acid 1.0 (0.5-2.0) mmol/L Calcium (8.6-10.3) mg/dL Total Bilirubin (0.2-1.0) mg/dL AST (13-39) U/L ALT (7-52) U/L Alkaline Phosphatase (34-104) U/L C-Reactive Protein (<8.01) mg/L Total Protein (6.4-8.9) g/dL Albumin (3.2-5.2) g/dL Globulin (2-4) g/dL Albumin/Globulin Ratio (1-3) Lipase (11.0-82.0) U/L Beta HCG, Quant mIU/mL Urine Color Urine Appearance Urine pH (5-9) Ur Specific [place] (1.010-1.030) Urine Protein (Negative) Urine Ketones (Negative) Urine Blood (Negative) Urine Nitrate (Negative) Urine Bilirubin (Negative) Urine Urobilinogen (Negative) Ur Leukocyte Esterase (Negative) Urine WBC (Auto) (Absent) Urine RBC (Auto) (Absent) Ur Squamous Epith Cells (Absent) Urine Bacteria (Absent) Urine Glucose (Negative) Result Diagrams: 06/14/18 16:55 06/14/18 16:55 Lab Statement: Any lab studies that have been ordered have been reviewed, and results considered in the medical decision making process. Abdominal Pain Fem Course/Dx - Course Course Of Treatment: A 27 year-old F presents to the ED with a CC of lower abdominal cramping since 1 day ago. She reports a positive home test. LMP 05/16/18. She notes nausea but denies pain and burning with urination, and vaginal bleeding. A physical exam revealed minimal bilateral lower quadrant tenderness. Hanny from labs confirms that the patients ABO group is A+. Discussed with pt that is early, with positive HCG, but not elevated enough to see findings on ultrasound, so without vaginal bleeding or significant pain, ultrasound is not indicated at this time. Pt wishes to follow up with Dr. Bob Nathan. Patient will be discharged with a final Dx of early and nausea. Pt is prescribe vitamins. Pt is agreeable with this plan. Allergies noted. - Diagnoses Differential Diagnosis: Positive: Constipation, Ectopic , Pelvic Inflammatory Disease, , Urinary Tract Infection Provider Diagnoses: , Nausea Discharge - Sign-Out/Discharge Documenting (check all that apply): Patient Departure - DC - Discharge Plan Condition: Stable Disposition: HOME Prescriptions: No13/Iron Ps/Folate 1 [Select-Ob Chewable Caplet] 1 each PO DAILY #30 tab.chew Patient Education Materials: Nausea and Vomiting in (ED) Referrals: Bhakti Flood MD [Primary Care Provider] - If Needed Bob Nathan MD [Medical Doctor] - As Soon As Possible Additional Instructions: Your test is positive today. The HCG level is 55. This is too early to see anything on ultrasound but it is a definite . Your blood type is A +. We have prescribed vitamins. You may try doxylamine over the counter for nausea if you wish, but with any , the fewer medications, the better. We have referred you to Dr. Nathan for care. You may have a urinary tract infection. A culture of your urine is in the lab. We will notify you if you need further treatment based on those results. Return to ED for any new or worsening symptoms, especially if any vaginal bleeding. - Billing Disposition and Condition Condition: STABLE Disposition: Home - Attestation Statements Document Initiated by Fransico: Yes Documenting Scribe: Hamida Arcos Provider For Whom Fransico is Documenting (Include Credential): Dr. Venita Masters MD Scribe Attestation: Hamida Glover scribed for Dr. Venita Masters MD on 06/15/18 at 2121. Scribe Documentation Reviewed: Yes Provider Attestation: The documentation as recorded by the Hamida erwin accurately reflects the service I personally performed and the decisions made by , Dr. Venita Masters MD Status of Scribe Document: Viewed
[2018-06-14 19:16] VITALS: BP 109/62
--- NOTE | 2018-06-17 11:15 | ED ---
Progress - Progress Note Progress Note: 06/17/18 11:10am SOFIE Pt calls ED wanting to check on urine culture results after ED visit 06/14/18 because she feels like she might have a UTI because she is having "itching" with urination. Pt was seen by me on 06/14/18 in [facility]. Chart reviewed and urine culture reviewed which shows no growth. Pt states she has "clear" vaginal discharge, that does not smell. Denies vaginal bleeding. States she has the same bilateral low abd cramping that she had on 06/14/18, no worse. Pt is calling from work. Pt has not had a chance to see Dr. Nathan who is her established OB provider. [id number]. Pt is advised to go to [facility] now, to leave work, and begin evaluation for this new itching with urination, and continued low abd cramping without vaginal bleeding with her early . Discussed with Dr. Yusra Dasilva by phone who is expecting patient. Course/Dx - Course Course Of Treatment: A 27 year-old F presents to the ED with a CC of lower abdominal cramping since 1 day ago. She reports a positive home test. LMP 05/16/18. She notes nausea but denies pain and burning with urination, and vaginal bleeding. A physical exam revealed minimal bilateral lower quadrant tenderness. Hanny from labs confirms that the patients ABO group is A+. Discussed with pt that is early, with positive HCG, but not elevated enough to see findings on ultrasound, so without vaginal bleeding or significant pain, ultrasound is not indicated at this time. Pt wishes to follow up with Dr. Bob Nathan. Patient will be discharged with a final Dx of early and nausea. Pt is prescribe vitamins. Pt is agreeable with this plan. Allergies noted. - Diagnoses Provider Diagnoses: , Nausea Discharge - Sign-Out/Discharge Documenting (check all that apply): Post-Discharge Follow Up - documentation of phone call and advice to pt to leave work and go to [facility] - Discharge Plan Condition: Stable Disposition: HOME Prescriptions: No13/Iron Ps/Folate 1 [Select-Ob Chewable Caplet] 1 each PO DAILY #30 tab.chew Patient Education Materials: Nausea and Vomiting in (ED) Referrals: Bhakti Flood MD [Primary Care Provider] - If Needed Bob Nathan MD [Medical Doctor] - As Soon As Possible Additional Instructions: Your test is positive today. The HCG level is 55. This is too early to see anything on ultrasound but it is a definite . Your blood type is A +. We have prescribed vitamins. You may try doxylamine over the counter for nausea if you wish, but with any , the fewer medications, the better. We have referred you to Dr. Nathan for care. You may have a urinary tract infection. A culture of your urine is in the lab. We will notify you if you need further treatment based on those results. Return to ED for any new or worsening symptoms, especially if any vaginal bleeding. - Billing Disposition and Condition Condition: STABLE Disposition: Home
== END | disposition home or self-care (01) ==
LOC: ED 16:21
DX: Z32.01 Encounter for pregnancy test, result positive (principal); R11.0 Nausea; Z87.891 Personal history of nicotine dependence
CPT/HCPCS: 36415; 80053; 81003; 81015; 83605; 83690; 84702; 85025; 86140; 87086; 99282

== ENCOUNTER 2018-06-17 11:30 | Emergency (ER) | payer OTHER ==
[2018-06-17 11:49] VITALS: BP 119/61
--- NOTE | 2018-06-19 09:42 | UC ---
- Progress Note Progress Note: LAB RESULT: NEGATIVE FOR MICHELLE; POSITIVE FOR GARDNERELLA. PATIENT IS ON METRONIDAZOLE. NO PRESCRIPTION IS NEEDED. HO CORDOBA MD 06/19/18 Course/Dx - Diagnoses Provider Diagnoses: Vaginitis and vulvovaginitis Discharge - Sign-Out/Discharge Documenting (check all that apply): Post-Discharge Follow Up All imaging exams completed and their final reports reviewed: No Studies - Discharge Plan Condition: Stable Disposition: HOME Prescriptions: metroNIDAZOLE [Metronidazole] 500 mg PO BID #14 tablet Patient Education Materials: (ED), Bacterial Vaginosis (ED), Vaginitis (ED) Forms: *Work Release Referrals: Bob Nathan MD [Medical Doctor] - No Primary Care Phys,NOPCP [Primary Care Provider] - Additional Instructions: - stay well hydrated. Drink plenty of non-alcoholic, non-caffinated beverages - You have been given treatment for bacterial vaginosis - take as prescribed - you have samples being tested for other vaginal infections - if you need a different treatment, you will receive a call from a care long line teamster - take pre- vitamins as prescribed - it is recommended you a have pelvic rest- do not insert anything into your vagina until you have followed-up with your primary care provider - contact your hypercil core transformer assembler to schedule a follow up appointment. If you have vaginal bleeding, increased cramping or any other concerns contact your doctor or go to the emergency department - - Billing Disposition and Condition Condition: STABLE Disposition: Home
--- NOTE | 2018-06-20 16:49 | UC ---
- Progress Note Progress Note: 06/20/2018 GC/Chlamydia=negative, Trichomonas Vaginalis=negative No change Harmony Pak PA-C Course/Dx - Diagnoses Provider Diagnoses: Vaginitis and vulvovaginitis Discharge - Sign-Out/Discharge Documenting (check all that apply): Patient Departure - D/c home All imaging exams completed and their final reports reviewed: No Studies - Discharge Plan Condition: Stable Disposition: HOME Prescriptions: metroNIDAZOLE [Metronidazole] 500 mg PO BID #14 tablet Patient Education Materials: (ED), Bacterial Vaginosis (ED), Vaginitis (ED) Forms: *Work Release Referrals: Bob Nathan MD [Medical Doctor] - No Primary Care Phys,NOPCP [Primary Care Provider] - Additional Instructions: - stay well hydrated. Drink plenty of non-alcoholic, non-caffinated beverages - You have been given treatment for bacterial vaginosis - take as prescribed - you have samples being tested for other vaginal infections - if you need a different treatment, you will receive a call from a care steam presser - take pre- vitamins as prescribed - it is recommended you a have pelvic rest- do not insert anything into your vagina until you have followed-up with your primary care provider - contact your tar boiler to schedule a follow up appointment. If you have vaginal bleeding, increased cramping or any other concerns contact your doctor or go to the emergency department - - Billing Disposition and Condition Condition: STABLE Disposition: Home
--- NOTE | 2018-06-21 09:58 | UC ---
Abdominal Pain Female HPI - HPI Summary HPI Summary: Patient is . Patient was evaluated and treated in the emergency department earlier this week with lower abdominal cramping. Patient at this time had a beta quantitative 55. Ultrasound was not performed. Patient was given Tylenol. Patient had a urine checked which grew nothing on the culture. Today, patient called the emergency department to get her culture results. Patient reported to the emergency department provider she has having some thin white vaginal discharge. Patient states there was a slight odor to it. Patient was advised to come to urgent care to have a pelvic exam and cultures taken. Patient has had BV before states this feels similar. Patient has any vaginal itching. No dysuria or hematuria. No blood in her urine. Patient states she continues to have little bit belly cramping but has not changed since she was previously evaluated in the ED. Patient denies fevers or chills. No nausea vomiting. No other complaints. Patient's medications reviewed this visit - History of Current Complaint Chief Complaint: UCGU Stated Complaint: PERSONAL Time Seen by Provider: 06/17/18 11:49 Hx Obtained From: Patient, Medical Records, Other: - ED provider Hx Last Menstrual Period: 05/16/18 Onset/Duration: Gradual Onset Severity Initially: Mild Severity Currently: Mild Pain Intensity: 2 Pain Scale Used: 0-10 Numeric Allergies/Adverse Reactions: Allergies Allergy/AdvReac Type Severity Reaction Status Date / Time No Known Allergies Allergy Verified 06/17/18 11:49 PMH/Surg Hx/FS Hx/Imm Hx Previously Healthy: Yes Other History Of: Hepatitis C - Surgical History Surgical History: Yes Surgery Procedure, Year, and Place: wisdom teeth - Family History Known Family History: Positive: Unknown, Cardiac Disease, Diabetes, Other - cancer, CVA and thyroid problems - Social History Occupation: Employed Full-time Lives: With Family Alcohol Use: None Substance Use Type: None Substance Use Comment - Amount & Last Used: December 27 2014 Smoking Status (MU): Former Smoker Type: Cigarettes Amount Used/How Often: quit in 01/2015 Have You Smoked in the Last Year: No - Immunization History Most Recent Influenza Vaccination: 04/2015 Most Recent Tetanus Shot: 07/27/2013 Most Recent Pneumonia Vaccination: never Review of Systems All Other Systems Reviewed And Are Negative: Yes Constitutional: Positive: Negative Skin: Positive: Negative Gastrointestinal: Positive: Abdominal Pain - mild pelvic cramping Genitourinary: Positive: Vaginal/Penile Discharge Physical Exam - Summary Physical Exam Summary: Vital Signs Reviewed: Yes A+Ox3, no distress Eyes: Conjunctiva Clear, DESIREE. EOM intact and full ENT: Hearing grossly normal TM x 2 clear, mmoist, uvula midline, no exudate, no erythema Neck: Positive: Supple Respiratory: Positive: No respiratory distress, No accessory muscle use + CTA throughout no w/r Cardiovascular: RRR nl s1, s2 no m/r CBT <2 sec abd soft + BS nt/nd no guarding, no distension no CVA pelvic: MORALES Camacho at bedside - pt with no external lesions pt with thin, greyish discharge non odor no bleeding os closed no CMT Musculoskeletal Exam: CAMPOS x 4 without difficulty Strength Intact, ROM Intact Neurological: Positive: Alert, + sensation throughout Psychological: Positive: Normal Response To Family Skin: Positive: no rash, no ecchymosis Triage Information Reviewed: Yes Vital Signs: Initial Vital Signs Temp 99.0 F 06/17/18 11:45 Pulse 82 06/17/18 11:45 Resp 18 06/17/18 11:45 BP 119/61 06/17/18 11:45 Pulse Ox 99 06/17/18 11:45 Abd Pain Female Course/Dx - Course Course Of Treatment: Pt (hcg 55 2 days ago) with progressive vaginal discharge with odor. Pt with mild lower abd cramping - has had for several days without change. Pt anxious regarding miscarriage has had onein the spring. reviewed notes from ED visit. reviewed b hcg with pt - no imaging today. exam c/w BV -will treat. pt aware cultures pending. f./u with Dr. Nathan. urine culture. pt comfortable and in agreement with plan - Differential Dx/Diagnosis Provider Diagnosis: Vaginitis and vulvovaginitis Discharge - Sign-Out/Discharge Documenting (check all that apply): Patient Departure All imaging exams completed and their final reports reviewed: No Studies - Discharge Plan Condition: Stable Disposition: HOME Prescriptions: metroNIDAZOLE [Metronidazole] 500 mg PO BID #14 tablet Patient Education Materials: (ED), Bacterial Vaginosis (ED), Vaginitis (ED) Forms: *Work Release Referrals: Bob Nathan MD [Medical Doctor] - No Primary Care Phys,NOPCP [Primary Care Provider] - Additional Instructions: - stay well hydrated. Drink plenty of non-alcoholic, non-caffinated beverages - You have been given treatment for bacterial vaginosis - take as prescribed - you have samples being tested for other vaginal infections - if you need a different treatment, you will receive a call from a care steam plant operator - take pre- vitamins as prescribed - it is recommended you a have pelvic rest- do not insert anything into your vagina until you have followed-up with your primary care provider - contact your air crew member to schedule a follow up appointment. If you have vaginal bleeding, increased cramping or any other concerns contact your doctor or go to the emergency department - - Billing Disposition and Condition Condition: STABLE Disposition: Home
== END 2018-06-17 12:52 | disposition home or self-care (01) ==
LOC: UCEAST 11:30
DX: N76.0 Acute vaginitis (principal); B96.89 Other specified bacterial agents as the cause of diseases classified elsewhere; Z87.891 Personal history of nicotine dependence
CPT/HCPCS: 81003; 87086; 87480; 87491; 87510; 87591; 87661; 99212; G0463

== ENCOUNTER → 2018-06-30 16:56 | Emergency (ER) | payer OTHER ==
--- NOTE | 2018-06-30 17:36 | ED ---
- HPI Summary HPI Summary: Pt is a 27 y/o female who presents to the ED c/o spotting. She is 6 weeks by dates, and her LNMP is 05/16/18. This is her 5th ; she has 3 children, and had a miscarriage in November 2017. At 12:30 today, she began having some bright red spotting. Pt also reports some dull cramping, but states its not painful. She is taking her pre- vitamins. - History of Current Complaint Chief Complaint: EDOBProblems Stated Complaint: VAGINAL BLEEDING 6 WEEKS Time Seen by Provider: 06/30/18 17:29 Hx Obtained From: Patient Chief Complaint: Vaginal Bleeding Onset/Duration: Started Hours Ago - 12:30, Resolved Timing: Constant Current Severity: Mild Pain Intensity: 2 Location of Pain: Diffuse Character: Cramping Aggravating Factors: Nothing Alleviating Factors: Nothing Associated Signs and Symptoms: Positive: Negative - Assessment Hx Now: Yes SAB: 0 IEA: 0 Hx Hysterectomy: No - Additional Pertinent History Maternal Blood Type and Rh: A Positive - Allergies/Home Medications Allergies/Adverse Reactions: Allergies Allergy/AdvReac Type Severity Reaction Status Date / Time No Known Allergies Allergy Verified 06/17/18 11:49 PMH/Surg Hx/FS Hx/Imm Hx Endocrine/Hematology History: Denies: Hx Diabetes, Hx Thyroid Disease Cardiovascular History: Denies: Hx Hypertension, Hx Pacemaker/ICD Respiratory History: Denies: Hx Asthma, Hx Chronic Obstructive Pulmonary Disease (COPD) GI History: Denies: Hx Ulcer History: Reports: Other Problems/Disorders - Hepatitis C positive, Hx Pre- eclampsia, UTIs Sensory History: Denies: Hx Hearing Aid Psychiatric History: Reports: Hx Anxiety, Hx Inpatient Treatment - 2007, 2008 [facility], Hx Community Mental Health Tx - Hx of being treated at [facility] Other Psychiatric Issues/Disorders - anxiety 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 - Surgical History Surgery Procedure, Year, and Place: wisdom teeth Infectious Disease History: Yes Infectious Disease History: Reports: Hx Hepatitis - hep c Denies: Hx Clostridium Difficile, Hx Human Immunodeficiency Virus (HIV), Hx of Known/Suspected MRSA, Hx Shingles, Hx Tuberculosis, History Other Infectious Disease, Traveled Outside the [place] in Last 30 Days - Family History Known Family History: Positive: Cardiac Disease, Diabetes, Other - cancer, CVA and thyroid problems - Social History Alcohol Use: None Hx Substance Use: No Substance Use Type: Reports: None Substance Use Comment - Amount & Last Used: December 27 2014 Hx Tobacco Use: Yes Smoking Status (MU): Former Smoker Type: Cigarettes Amount Used/How Often: quit in 01/2015 Have You Smoked in the Last Year: No Review of Systems Positive: Abdominal Pain - cramping Positive: other - vaginal spotting All Other Systems Reviewed And Are Negative: Yes Physical Exam - Summary Physical Exam Summary: Appearance: Well appearing, no pain distress Skin: warm, dry, reflects adequate perfusion Head/face: normal Eyes: EOMI, DESIREE ENT: mucous membranes moist Neck: supple, non-tender Respiratory: CTA, breath sounds present Cardiovascular: RRR, pulses symmetrical Abdomen: non-tender, soft Bowel Sounds: present Musculoskeletal: normal, strength/ROM intact Neuro: normal, sensory motor intact, A&Ox3 : cervix closed, no blood - Physical Exam Triage Information Reviewed: Yes Vital Signs Reviewed: Yes Diagnostics - Vital Signs Vital Signs Temp Pulse Resp BP Pulse Ox 06/30/18 17:10 97.0 F 93 18 124/61 98 - Laboratory Lab Statement: Any lab studies that have been ordered have been reviewed, and results considered in the medical decision making process. - Ultrasound No standard instances Ultrasound Interpretation Completed By: ED Physician Summary of Ultrasound Findings: Transvaginal US: 6 week 4 day intrauterine with heart tone of 116 bpm. Pending official radiology report. Course/Dx - Course Course Of Treatment: Nurse's note reviewed. No blood on exam. A positive blood type. Quantitative hCG is appropriate. Ultrasound shows intrauterine with heartbeat consistent with dates. - Differential Diagnosis/HQI/PQRI: Other: - Spontaneous miscarriage, threatened miscarriage, ectopic - Diagnoses Provider Diagnoses: Threatened , First trimester Discharge - Sign-Out/Discharge Documenting (check all that apply): Patient Departure - Discharge - Discharge Plan Condition: Improved Disposition: HOME Patient Education Materials: Threatened Miscarriage (ED) Referrals: [facility] [facility]ERR[facility] [Outside] Additional Instructions: Follow up with your ENTRY LEVEL ACCOUNTANT. Return to the ED with heavy bleeding, cramping, or any other new or worsening symptoms. Use Tylenol as needed. - Billing Disposition and Condition Condition: IMPROVED Disposition: Home - Attestation Statements Document Initiated by Sarahie: Yes Documenting Scribe: Amanda Davidson Provider For Whom Scribe is Documenting (Include Credential): Mike Dougherty MD Scribe Attestation: IAmanda, scribed for Mike Dougherty MD on 06/30/18 at 1850. Scribe Documentation Reviewed: Yes Provider Attestation: The documentation as recorded by the esequielibeAmanda accurately reflects the service I personally performed and the decisions made by , Mike Dougherty MD Status of Scribe Document: Viewed
[2018-06-30 18:58] VITALS: BP 132/56
== END | disposition home or self-care (01) ==
LOC: ED 16:56
DX: O20.0 Threatened abortion (principal); Z3A.01 Less than 8 weeks gestation of pregnancy; Z87.891 Personal history of nicotine dependence; O98.411 Viral hepatitis complicating pregnancy, first trimester; B19.20 Unspecified viral hepatitis C without hepatic coma
CPT/HCPCS: 36415; 76817; 84702; 99282

== ENCOUNTER 2018-08-01 21:58 | Emergency (ER) | payer OTHER ==
[2018-08-02 00:13] VITALS: BP 0/0
== END 2018-08-01 23:45 | disposition left against medical advice (07) ==
LOC: ED 21:58
DX: O26.851 Spotting complicating pregnancy, first trimester (principal); Z3A.11 11 weeks gestation of pregnancy; Z53.21 Procedure and treatment not carried out due to patient leaving prior to being seen by health care provider

== ENCOUNTER 2018-08-24 18:21 | Emergency (ER) | payer OTHER ==
[2018-08-24] MEDS ORDERED: Acetaminophen TAB* 325 MG PO ONE (20:06)
--- NOTE | 2018-08-24 20:10 | ED ---
Abdominal Pain/Female - HPI Summary HPI Summary: This patient is a 27 year old F presenting to [facility] with a chief complaint of constant cramping abd pain in LLQ and RLQ since 2 days ago. The patient reports that the pain intermittently radiates to her lower back. Patient is 14 weeks with her 4th and she has 3 kids at home. The patient rates the pain 5/10 in severity. Symptoms aggravated by nothing. Symptoms alleviated by nothing. Patient denies N/V/D, dysuria, burning with urination, constipation , or vaginal bleeding. - History of Current Complaint Chief Complaint: EDAbdPain Stated Complaint: 14 WEEKS /ABD PAIN Time Seen by Provider: 08/24/18 19:55 Hx Obtained From: Patient Hx Last Menstrual Period: 05/16/18 ?: Yes - 14 weeks Onset/Duration: Gradual Onset, Lasting Days - 2 days, Still Present Timing: Constant Severity Initially: Mild Severity Currently: Mild Pain Intensity: 5 Pain Scale Used: 0-10 Numeric Location: Discrete At: RLQ, Discrete At: LLQ Radiates: Yes Radiates to: Back - lower back Character: Cramping Aggravating Factor(s): Nothing Alleviating Factor(s): Nothing Associated Signs and Symptoms: Positive: Back Pain. Negative: Constipation, Urinary Symptoms, Vaginal Bleeding, Nausea, Vomiting, Diarrhea Allergies/Adverse Reactions: Allergies Allergy/AdvReac Type Severity Reaction Status Date / Time No Known Allergies Allergy Verified 06/17/18 11:49 PMH/Surg Hx/FS Hx/Imm Hx Endocrine/Hematology History: Denies: Hx Diabetes, Hx Thyroid Disease Cardiovascular History: Denies: Hx Hypertension, Hx Pacemaker/ICD Respiratory History: Denies: Hx Asthma, Hx Chronic Obstructive Pulmonary Disease (COPD) GI History: Denies: Hx Ulcer History: Reports: Other Problems/Disorders - Hepatitis C positive, Hx Pre- eclampsia, UTIs Sensory History: Denies: Hx Hearing Aid Psychiatric History: Reports: Hx Anxiety, Hx Inpatient Treatment - 2007, 2009 [facility], Hx Community Mental Health Tx - Hx of being treated at [facility] Other Psychiatric Issues/Disorders - anxiety 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 - Surgical History Surgery Procedure, Year, and Place: wisdom teeth Infectious Disease History: No Infectious Disease History: Reports: Hx Hepatitis - hep c Denies: Hx Clostridium Difficile, Hx Human Immunodeficiency Virus (HIV), Hx of Known/Suspected MRSA, Hx Shingles, Hx Tuberculosis, History Other Infectious Disease, Traveled Outside the [place] in Last 30 Days - Family History Known Family History: Positive: Cardiac Disease, Diabetes, Other - cancer, CVA and thyroid problems - Social History Alcohol Use: None Hx Substance Use: No Substance Use Type: Reports: None Substance Use Comment - Amount & Last Used: December 27 2014 Hx Tobacco Use: Yes Smoking Status (MU): Former Smoker Type: Cigarettes Amount Used/How Often: quit in 01/2015 Have You Smoked in the Last Year: No Review of Systems Negative: Fever Negative: Epistaxis Positive: Abdominal Pain - RLQ and LLQ pain. Negative: Vomiting, Diarrhea, Nausea Genitourinary: Negative - negative vaginal bleeding Negative: burning, dysuria Positive: Myalgia - lower back pain All Other Systems Reviewed And Are Negative: Yes Physical Exam - Summary Physical Exam Summary: VITAL SIGNS: Reviewed. GENERAL: Patient is a well-developed and nourished FEMALE who is lying comfortable in the stretcher. Patient is not in any acute respiratory distress. HEAD AND FACE: No signs of trauma. No ecchymosis, hematomas or skull depressions. No sinus tenderness. EYES: PERRLA, EOMI x 2, No injected conjunctiva, no nystagmus. EARS: Hearing grossly intact. Ear canals and tympanic membranes are within normal limits. MOUTH: Oropharynx within normal limits. NECK: Supple, trachea is midline, no adenopathy, no JVD, no carotid bruit, no c- spine tenderness, neck with full ROM. CHEST: Symmetric, no tenderness at palpation LUNGS: Clear to auscultation bilaterally. No wheezing or crackles. CVS: Regular rate and rhythm, S1 and S2 present, no murmurs or gallops appreciated. ABDOMEN: Soft, mild LLQ tenderness. No signs of distention. No rebound no guarding, and no masses palpated. Hypoactive bowel sounds. EXTREMITIES: FROM in all major joints, no edema, no cyanosis or clubbing. NEURO: Alert and oriented x 3. No acute neurological deficits. Speech is normal and follows commands. SKIN: Dry and warm Triage Information Reviewed: Yes Vital Signs On Initial Exam: Initial Vitals Temp Pulse Resp BP Pulse Ox 97.3 F 90 18 125/67 98 08/24/18 18:26 08/24/18 18:26 08/24/18 18:26 08/24/18 18:26 08/24/18 18:26 Vital Signs Reviewed: Yes Diagnostics - Vital Signs Vital Signs Temp Pulse Resp BP Pulse Ox 08/24/18 19:29 98.9 F 81 18 157/100 98 08/24/18 18:26 97.3 F 90 18 125/67 98 - Laboratory Lab Statement: Any lab studies that have been ordered have been reviewed, and results considered in the medical decision making process. - Additional Comments Diagnostic Additional Comments: US : Interpreted by radiologist. Impression: 1. single live fetus of 14 weeks and 2 days with normal interval growth. 2. Placenta is left lateral. No evidence of previa. Dr. Diaz has reviewed this report. Abdominal Pain Fem Course/Dx - Course Course Of Treatment: This patient is a 27 year old F presenting to [facility] with a chief complaint of constant cramping abd pain in LLQ and RLQ since 2 days ago. The patient reports that the pain intermittently radiates to her lower back. Patient is 14 weeks with her 4th and she has 3 kids at home. Patient denies N/V/D, dysuria, burning with urination, constipation, or vaginal bleeding. US reveals, per radiologist, 1. single live fetus of 14 weeks and 2 days with normal interval growth. 2. Placenta is left lateral. No evidence of previa. ED physician has reviewed this radiology report. Test results with no significant abnormalities. In the ED course the patient was given acetaminophen and Keflex. Dx and UTI. Patient will be discharged home with prescription for Keflex and follow up from PCP. The patient is agreeable with this plan. - Diagnoses Provider Diagnoses: , UTI (urinary tract infection) Discharge - Sign-Out/Discharge Documenting (check all that apply): Patient Departure - discharge home Patient Received Moderate/Deep Sedation with Procedure: No - Discharge Plan Condition: Stable Disposition: HOME Prescriptions: Cephalexin CAP* [Keflex CAP*] 500 mg PO QID #30 cap Patient Education Materials: Urinary Tract Infection in Women (ED) Referrals: Bob Nathan MD [Primary Care Provider] - Additional Instructions: Follow up with primary care physician in 1-2 days. Return to the emergency department with any new or worsening symptoms. - Attestation Statements Document Initiated by Fransico: Yes Documenting Scribe: Katherine Canela Provider For Whom Scribe is Documenting (Include Credential): Ang Diaz MD Scribe Attestation: Katherine Glover, scribed for Ang Diaz MD on 08/24/18 at 2254. Status of Scribe Document: Ready
[2018-08-24 22:10] LABS: Urine Appearance Cloudy; Urine Bacteria Absent (Absent); Urine Bilirubin Negative (Negative); Urine Blood Negative (Negative); Urine Color Yellow; Urine Glucose Negative (Negative); Urine Ketones Negative (Negative); Urine Nitrite Negative (Negative); Urine Protein Negative (Negative); Urine Red Blood Cell Trace(0-2/hpf) (Absent); Urine Specific Gravity 1.026 (1.010-1.030); Urine Squamous Epithelial Cell Present (Absent); Urine Urobilinogen Positive (Negative); Urine White Blood Cell 1+(6-10/hpf) (Absent)
[2018-08-24] MEDS ORDERED: Cephalexin CAP* 500 MG PO ONE (22:50)
[2018-08-24 23:35] VITALS: BP 123/56
== END 2018-08-24 23:36 | disposition home or self-care (01) ==
LOC: ED 18:21
DX: O23.41 Unspecified infection of urinary tract in pregnancy, first trimester (principal); Z3A.14 14 weeks gestation of pregnancy
CPT/HCPCS: 76805; 81003; 81015; 87086; 99283; A9270-GY

== ENCOUNTER 2018-09-26 20:04 | Emergency (ER) | payer OTHER ==
[2018-09-27 00:20] LABS: ABS Basophils 0 10^3/ul (0-0.2); ABS Eosinophils 0 10^3/ul (0-0.6); ABS Lymphocytes 1.1 10^3/ul (1.0-4.8); ABS Monocytes 0.3 10^3/ul (0-0.8); ABS Neutrophils 8.4 10^3/ul (1.5-7.7); ABS Nucleated RBC 0 10^3/ul; Eosinophil % 0.3 %; Hematocrit 32 % (35-47); Hemoglobin 11.3 g/dl (12.0-16.0); Lymphocyte % 10.8 %; Mean Corpuscular HGB Conc 36 g/dl (31-36); Mean Corpuscular Hemoglobin 33 pg (27-31); Mean Corpuscular Volume 94 fL (80-97); Mean Platelet Volume 6.9 fL (7.4-10.4); Nucleated Red Blood Cells % 0; Platelet Count 195 10^3/ul (150-450); Red Blood Count 3.38 10^6/ul (4.00-5.40); Red Cell Distribution Width 13 % (10.5-15); White Blood Count 9.9 10^3/ul (3.5-10.8)
[2018-09-27 00:37] LABS: Albumin 3.6 g/dL (3.2-5.2); Albumin/Globulin Ratio 1.4 (1-3); BUN/Creatinine Ratio 19.2 (8-20); C Reactive Protein 1.04 mg/L (<8.01); Calcium 8.3 mg/dL (8.6-10.3); EGFR African American 173.9 (>60); EGFR Non-African American 143.7 (>60); Globulin 2.6 g/dL (2-4); Potassium 3.6 mmol/L (3.5-5.0); Total Bilirubin 0.6 mg/dL (0.2-1.0); Total Protein 6.2 g/dL (6.4-8.9)
[2018-09-27 01:08] LABS: Urine Appearance Cloudy; Urine Bacteria Absent (Absent); Urine Bilirubin Negative (Negative); Urine Blood Negative (Negative); Urine Color Yellow; Urine Glucose Negative (Negative); Urine Ketones Negative (Negative); Urine Nitrite Negative (Negative); Urine Protein Negative (Negative); Urine Red Blood Cell Trace(0-2/hpf) (Absent); Urine Specific Gravity 1.023 (1.010-1.030); Urine Squamous Epithelial Cell Present (Absent); Urine Urobilinogen Negative (Negative); Urine White Blood Cell 2+(11-20/hpf) (Absent)
[2018-09-27] MEDS ORDERED: Acetaminophen TAB* 325 MG PO ONE (01:43)
--- NOTE | 2018-09-27 01:47 | ED ---
- HPI Summary HPI Summary: Patient with history of 19 weeks complains of lower abdominal cramping and low back pain starting today at 4 PM. Abdominal cramping is intermittent, worse 8/10, currently 3/10. Worse with nothing, improved with lying down. Denies fever, cough, sore throat, CP, SOB, N/V/D, change in urine, change in BM , vaginal bleeding, vaginal discharge, vaginal pain. Patient followed by OB/ FRONT TENDER Dr. Nathan, has had ultrasound 09/19/18 comfirming IUP. , history of one miscarriage. Medical history is none. Abdominal surgical history is none. - History of Current Complaint Chief Complaint: EDOBProblems Stated Complaint: PAIN IN LOWER BACK/19 WKS PREG ABD PAIN PER PT Time Seen by Provider: 09/26/18 23:50 Hx Obtained From: Patient Onset/Duration: Started Hours Ago Timing: Intermittent, Lasting Minutes Severity: Moderate Current Severity: Moderate Pain Intensity: 6 Location of Pain: Left Side Character: Cramping Aggravating Factors: Nothing Alleviating Factors: Position Associated Signs and Symptoms: Positive: Back Pain - Assessment Hx Now: Yes SAB: 0 IEA: 0 Hx Hysterectomy: No - Additional Pertinent History Maternal Blood Type and Rh: A Positive - Allergies/Home Medications Allergies/Adverse Reactions: Allergies Allergy/AdvReac Type Severity Reaction Status Date / Time No Known Allergies Allergy Verified 06/17/18 11:49 PMH/Surg Hx/FS Hx/Imm Hx Endocrine/Hematology History: Denies: Hx Diabetes, Hx Thyroid Disease Cardiovascular History: Denies: Hx Hypertension, Hx Pacemaker/ICD Respiratory History: Denies: Hx Asthma, Hx Chronic Obstructive Pulmonary Disease (COPD) GI History: Denies: Hx Ulcer History: Reports: Other Problems/Disorders - Hepatitis C positive, Hx Pre- eclampsia, UTIs Sensory History: Denies: Hx Hearing Aid Opthamlomology History: Denies: Hx Eye Prosthesis Neurological History: Denies: Hx Dementia Psychiatric History: Reports: Hx Anxiety, Hx Inpatient Treatment - 2007, 2008 [facility], Hx Community Mental Health Tx - Hx of being treated at [facility] Other Psychiatric Issues/Disorders - anxiety 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 - Surgical History Surgery Procedure, Year, and Place: wisdom teeth Infectious Disease History: No Infectious Disease History: Reports: Hx Hepatitis - hep c Denies: Hx Clostridium Difficile, Hx Human Immunodeficiency Virus (HIV), Hx of Known/Suspected MRSA, Hx Shingles, Hx Tuberculosis, History Other Infectious Disease, Traveled Outside the [place] in Last 30 Days - Family History Known Family History: Positive: Cardiac Disease, Diabetes, Other - cancer, CVA and thyroid problems - Social History Alcohol Use: None Hx Substance Use: No Substance Use Type: Reports: None Substance Use Comment - Amount & Last Used: December 27 2014 hx. heroin Hx Tobacco Use: Yes Smoking Status (MU): Former Smoker Type: Cigarettes Amount Used/How Often: quit in 01/2015 Have You Smoked in the Last Year: No Review of Systems Constitutional: Negative Eyes: Negative ENT: Negative Cardiovascular: Negative Respiratory: Negative Positive: Abdominal Pain Genitourinary: Negative Musculoskeletal: Negative Skin: Negative Neurological: Negative Psychological: Normal All Other Systems Reviewed And Are Negative: Yes Physical Exam - Summary Physical Exam Summary: Abdomen mildly tender to palpation on the left lower quadrant. Abdominal exam otherwise unremarkable. Physical exam otherwise unremarkable. No peripheral edema. Lung sounds clear to auscultation bilaterally. RRR. - Physical Exam Triage Information Reviewed: Yes Vital Signs Reviewed: Yes Appearance: Positive: Well-Appearing Skin: Positive: Warm Head/Face: Positive: Normal Head/Face Inspection Eyes: Positive: Normal Neck: Positive: Supple Respiratory/Lung Sounds: Positive: Clear to Auscultation Cardiovascular: Positive: Normal Abdomen Description: Positive: Other: Musculoskeletal: Positive: Normal Neurological: Positive: Normal Psychiatric: Positive: Normal AVPU Assessment: Alert - [place] Coma Scale Eye: 4 - Spontaneous Motor: 6 - Obeys Commands Verbal: 5 - Oriented Coma Scale Total: 15 Diagnostics - Vital Signs Vital Signs Temp Pulse Resp BP Pulse Ox 09/27/18 01:18 98.2 F 82 17 107/52 95 09/26/18 22:32 98.7 F 84 18 128/65 100 09/26/18 20:07 97.3 F 83 18 133/65 97 - Laboratory Lab Results: Lab Results 09/27/18 09/27/18 09/27/18 Range/Units 00:12 00:12 00:55 WBC 9.9 (3.5-10.8) 10^3/ul RBC 3.38 L (4.00-5.40) 10^6/ul Hgb 11.3 L (12.0-16.0) g/dl Hct 32 L (35-47) % MCV 94 (80-97) fL MCH 33 H (27-31) pg MCHC 36 (31-36) g/dl RDW 13 (10.5-15) % Plt Count 195 (150-450) 10^3/ul MPV 6.9 L (7.4-10.4) fL Neut % (Auto) 85.3 % Lymph % (Auto) 10.8 % [place] % (Auto) 3.5 % Eos % (Auto) 0.3 % Baso % (Auto) 0.1 % Absolute Neuts (auto) 8.4 H (1.5-7.7) 10^3/ul Absolute Lymphs (auto) 1.1 (1.0-4.8) 10^3/ul Absolute Monos (auto) 0.3 (0-0.8) 10^3/ul Absolute Eos (auto) 0 (0-0.6) 10^3/ul Absolute Basos (auto) 0 (0-0.2) 10^3/ul Absolute Nucleated RBC 0 10^3/ul Nucleated RBC % 0 Sodium 135 (135-145) mmol/L Potassium 3.6 (3.5-5.0) mmol/L Chloride 104 (101-111) mmol/L Carbon Dioxide 25 (22-32) mmol/L Anion Gap 6 (2-11) mmol/L BUN 10 (6-24) mg/dL Creatinine 0.52 (0.51-0.95) mg/dL Est GFR ( Amer) 173.9 (>60) Est GFR (Non-Af Amer) 143.7 (>60) BUN/Creatinine Ratio 19.2 (8-20) Glucose 86 (70-100) mg/dL Calcium 8.3 L (8.6-10.3) mg/dL Total Bilirubin 0.60 (0.2-1.0) mg/dL AST 16 (13-39) U/L ALT 17 (7-52) U/L Alkaline Phosphatase 38 (34-104) U/L C-Reactive Protein 1.04 (<8.01) mg/L Total Protein 6.2 L (6.4-8.9) g/dL Albumin 3.6 (3.2-5.2) g/dL Globulin 2.6 (2-4) g/dL Albumin/Globulin Ratio 1.4 (1-3) Urine Color Yellow Urine Appearance Cloudy Urine pH 7.0 (5-9) Ur Specific [place] 1.023 (1.010-1.030) Urine Protein Negative (Negative) Urine Ketones Negative (Negative) Urine Blood Negative (Negative) Urine Nitrate Negative (Negative) Urine Bilirubin Negative (Negative) Urine Urobilinogen Negative (Negative) Ur Leukocyte Esterase 1+ A (Negative) Urine WBC (Auto) 2+(11-20/hpf) A (Absent) Urine RBC (Auto) Trace(0-2/hpf) (Absent) Ur Squamous Epith Cells Present A (Absent) Urine Bacteria Absent (Absent) Urine Glucose Negative (Negative) Result Diagrams: 09/27/18 00:12 09/27/18 00:12 Lab Statement: Any lab studies that have been ordered have been reviewed, and results considered in the medical decision making process. Course/Dx - Course Course Of Treatment: Patient with history of 19 weeks complains of lower abdominal cramping and low back pain starting today at 4 PM. Abdominal cramping is intermittent, worse 8/10, currently 3/10. Worse with nothing, improved with lying down. Denies fever, cough, sore throat, CP, SOB, N/V/D, change in urine, change in BM, vaginal bleeding, vaginal discharge, vaginal pain. Patient followed by [facility] [employer] [facility]ICIAN Dr. Nathan, has had ultrasound 09/19/18 comfirming IUP. , history of one miscarriage. Medical history is none. Abdominal surgical history is none. Physical exam:Abdomen mildly tender to palpation on the left lower quadrant. Abdominal exam otherwise unremarkable. Physical exam otherwise unremarkable. No peripheral edema. Lung sounds clear to auscultation bilaterally. RRR. Vital signs within normal limits. Labs unremarkable. heart tones normal. Given Tylenol. Patient has follow-up appointment with Dr. Farmer tomorrow on Wednesday. - Diagnoses Provider Diagnoses: Abdominal cramping affecting Discharge - Sign-Out/Discharge Documenting (check all that apply): Patient Departure Patient Received Moderate/Deep Sedation with Procedure: No - Discharge Plan Condition: Stable Disposition: HOME Patient Education Materials: (ED) Referrals: Bob Nathan MD [Primary Care Provider] - Additional Instructions: Follow-up with your [facility] TECHNICIAN at your appointment on Wednesday as scheduled. Return to the ED for any new or worsening symptoms. - Billing Disposition and Condition Condition: STABLE Disposition: Home
[2018-09-27 02:10] VITALS: BP 0/0
== END 2018-09-27 02:08 | disposition home or self-care (01) ==
LOC: ED 20:04
DX: O26.892 Other specified pregnancy related conditions, second trimester (principal); R10.30 Lower abdominal pain, unspecified; M54.5 Low back pain; Z3A.19 19 weeks gestation of pregnancy; Z87.891 Personal history of nicotine dependence
CPT/HCPCS: 36415; 80053; 81003; 81015; 85025; 86140; 87077; 87086; 99283

== ENCOUNTER 2019-01-25 21:18 | Emergency (ER) | payer OTHER ==
[2019-01-25 21:56] VITALS: BP 119/68
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
== END 2019-01-25 22:45 | disposition home or self-care (01) ==
LOC: UCEAST 21:18
DX: O26.893 Other specified pregnancy related conditions, third trimester (principal); S46.912A Strain of unspecified muscle, fascia and tendon at shoulder and upper arm level, left arm, initial encounter; X58.XXXA Exposure to other specified factors, initial encounter; Y92.9 Unspecified place or not applicable; Z3A.36 36 weeks gestation of pregnancy
CPT/HCPCS: 99212; G0463

== ENCOUNTER 2019-02-16 08:05 | Inpatient (IN) | payer OTHER ==
[2019-02-16] MEDS ORDERED: Lactated Ringers 1000 ML Bag* 1,000 ML IV ONE (09:28)
[2019-02-16] MEDS ORDERED: Penicillin G Potassium IV* 5,000,000 UNITS in NS 0.9% 100 ML* 100 ML IVPB ONE (09:28)
[2019-02-16] MEDS ORDERED: Buffered Lidocaine 1% SYRIN* 1 ML/SYRINGE INTRADERM ONE (09:28)
[2019-02-16] MEDS ORDERED: Lactated Ringers 1000 ML Bag* 1,000 ML IV SCH ×2 (10:00→19:00)
[2019-02-16 11:22] LABS: ABS Eosinophils 0.1 10^3/ul (0-0.6); ABS Lymphocytes 1.1 10^3/ul (1.0-4.8); ABS Monocytes 0.4 10^3/ul (0-0.8); ABS Neutrophils 8.5 10^3/ul (1.5-7.7); Eosinophil % 0.5 %; Hematocrit 29 % (35-47); Hemoglobin 10.1 g/dL (12.0-16.0); Lymphocyte % 10.9 %; Mean Corpuscular HGB Conc 34 g/dL (31-36); Mean Corpuscular Hemoglobin 31 pg (27-31); Mean Corpuscular Volume 90 fL (80-97); Mean Platelet Volume 7.4 fL (7.4-10.4); Platelet Count 214 10^3/uL (150-450); Red Blood Count 3.27 10^6 /uL (3.70-4.87); Red Cell Distribution Width 15 % (10-15); White Blood Count 10.1 10^3/uL (3.5-10.8)
[2019-02-16 11:38] LABS: Urine Benzodiazepine Screen None Detected (None Detect); Urine Opiates Screen None Detected (None Detect)
[2019-02-16] MEDS ORDERED: Misoprostol TAB* 100 MCG PO ONE (11:46)
--- NOTE | 2019-02-16 11:59 | HP ---
General Information - Reason for Visit induction of labor. Pt c/o pelvic pain, denies ctx, vaginal bleeding or LOF - General Information Maternal Age: 28 Grav: 5 Para: 3 SAB: 0 IEA: 1 Estimated Due Date: 02/20/19 Determined By: LMP Maternal Blood Type and Rh: A Positive - Results this Serology/RPR Result: Non-Reactive Rubella Result: Immune HBsAg Result: Negative HIV Result: Negative GBS Culture Result: Positive Past Medical History Delivery History: Hx Uncomplicated Vaginal Delivery Pertinent Past Medical History: See Records - Hep C + Pertinent Past Surgical History: See Records - wisdom teeth Pertinent Family History: See Records - MGF: CVD: MGM: DM; M: thyroid Review of Systems Constitutional: Comfortable CV Complaint: No Respiratory: Shortness of Breath: No Gastrointestinal: No Nausea/Vomiting, Normal Bowel Movement Genitourinary: No Dysuria, No Bleeding, No Leaking Fluid Musculoskeletal: No Complaint, No Epigastric Pain Neurological: No Headache, No Visual Changes Movement: Normal Exam Allergies/Adverse Reactions: Allergies No Known Allergies Allergy (Verified 01/25/19 21:56) T:98.2, P:103, R:20, BP: 124/79, O2:99% Lab Values - Entire Visit: Laboratory Tests 02/16/19 02/16/19 02/16/19 10:45 10:45 10:45 WBC 10.1 RBC 3.27 L Hgb 10.1 L Hct 29 L MCV 90 MCH 31 MCHC 34 RDW 15 Plt Count 214 MPV 7.4 Neut % (Auto) 84.2 Lymph % (Auto) 10.9 [place] % (Auto) 4.2 Eos % (Auto) 0.5 Baso % (Auto) 0.2 Absolute Neuts (auto) 8.5 H Absolute Lymphs (auto) 1.1 Absolute Monos (auto) 0.4 Absolute Eos (auto) 0.1 Absolute Basos (auto) 0.0 Absolute Nucleated RBC 0.0 Nucleated RBC % 0.0 Urine Opiates Screen None detected Ur Barbiturates Screen None detected Ur Phencyclidine Scrn None detected Ur Amphetamines Screen None detected U Benzodiazepines Scrn None detected Urine Cocaine Screen None detected U Cannabinoids Screen None detected Blood Type A Positive - Measurements Height: 5 ft 7 in Weight: 205 lb Weight in lbs: 205.885316 Body Mass Index (BMI): 32.1 Pre- Weight: 163 lb Weight Gained This : 42 lbs and 0 ozs - Exam Breast: Breast Exam Deferred CVA: No CVA Tenderness Extremities: No Edema Heart: Normal Rhythm/Heart Sounds HEENT: No Significant Findings Lungs: Clear Bilaterally Rectal: Rectal Exam Deferred Reflexes: DTR 2+ Thyroid: No Thyromegaly - Abdominal Exam Abdomen Exam: Fundal Height Consistent with Dates - Ultrasound/Biophysical Profile Ultrasound Status: Not Done Targeted Exam Findings Estimated Weight: 7lbs 7oz EFM Findings - External Monitor Findings Baseline Heart Rate: 130 External Monitor Findings: Accelerations Present, No Pattern of Variable or Late Decelerations, Variability Moderate, Baseline Stable Contractions: None Assessment/Plan - Assessment 28 y.o. , 39w3d, cat I NST - Obstetrical Risk Factors Obstetrical Risk Factors: GBS Positive - Plan Plan: Induction - Date/Time of Admission Date of Admission: 02/16/19 Time of Admission: 12:00
[2019-02-16] MEDS ORDERED: Misoprostol TAB* 100 MCG ONE (12:22)
[2019-02-16] MEDS ORDERED: Penicillin G Potassium IV* 2,500,000 UNITS in NS 0.9% 100 ML* 100 ML IVPB SCH (15:00)
--- NOTE | 2019-02-16 17:41 | PN ---
Progress Note - Progress Note Date of Service: 02/16/19 SOAP: Subjective: Pt reports increased pressure and contractions closer together and stronger. Pt requests pain medication. Objective: FHT:125bpm, + accels, -decels, moderate variability, ctx q 2-3min cervix:/0 Assessment: 28 y.o. , 39w3d EGA, Cat I NST Plan: 1) Hydrotherapy 2) Nitrous oxide, reviewed R/B 3) Epidural if no improvement
[2019-02-16] MEDS ORDERED: Oxytocin in LR* 20 UNITS/1,000 ML BAG IVPB ONE (17:57)
[2019-02-16] MEDS ORDERED: Dibucaine 1% 28.35 GM TUBE PR PRN (18:42)
[2019-02-16] MEDS ORDERED: Glycerin ADULT SUPP PR PRN (18:42)
[2019-02-16] MEDS ORDERED: Witch Hazel PAD* JAR TOPICAL PRN (18:42)
--- NOTE | 2019-02-16 18:44 | PROCNOTE ---
[facility] OB: Delivery Note - Delivery A Date of : 02/16/19 Time of : 16:27 Sex: Female Score 1 Minute: 9 Score 5 Minutes: 9 Gestational Age in Weeks and Days at Delivery: 39 Weeks and 3 Days Delivery Method: Spontaneous Vaginal Labor: Induced Amniotic Fluid: Clear Estimated Blood Loss: 200 Anesthesia/Analgesia: Nitrous-Labor Delivered By: Dahiana Yarbrough - Nursery Level of Nursery: Regular/Bedside - Perineum Perineal Injury: Perineal Laceration, 1st Degree Perineal Repair: By Delivering Practioner - Events Delivery Events of Note: Pitocin Only After Delivery, Full Course of Antibiotics Delivery Events of Note Comment: nuchal cord x 1, easily reduced
[2019-02-16] MEDS ORDERED: Oxytocin in LR* 20 UNITS/1,000 ML BAG IVPB SCH (19:00)
[2019-02-16] MEDS: Acetaminophen TAB* 325 MG PO PRN (19:56)
[2019-02-16] MEDS: Ibuprofen TAB* 600 MG PO PRN (19:56)
[2019-02-16] MEDS ORDERED: Simethicone TAB* 80 MG TAB.CHEW PO SCH (21:00)
[2019-02-16] MEDS ORDERED: EPHEDrine (Pressors)* 50 MG/ML VIAL ONE (23:58)
[2019-02-16] MEDS ORDERED: Lidocaine 1% INJ* 10 MG/ML 30 ML SDV ONE (23:58)
[2019-02-17] MEDS: Acetaminophen TAB* 325 MG PO PRN ×4 (00:09→20:02)
[2019-02-17] MEDS: Docusate CAP* 100 MG PO SCH ×4 (00:09→21:24)
[2019-02-17] MEDS ORDERED: Lidocaine 1% MPF ** 5 ML VIAL ONE (00:11)
[2019-02-17] MEDS: Ibuprofen TAB* 600 MG PO PRN ×3 (05:37→20:02)
[2019-02-17 09:29] LABS: ABS Lymphocytes 1.3 10^3/ul (1.0-4.8); ABS Monocytes 0.6 10^3/ul (0-0.8); ABS Neutrophils 8.5 10^3/ul (1.5-7.7); Eosinophil % 0.4 %; Hematocrit 28 % (35-47); Hemoglobin 9.9 g/dL (12.0-16.0); Lymphocyte % 12.8 %; Mean Corpuscular HGB Conc 35 g/dL (31-36); Mean Corpuscular Hemoglobin 32 pg (27-31); Mean Corpuscular Volume 92 fL (80-97); Mean Platelet Volume 7.6 fL (7.4-10.4); Nucleated Red Blood Cells % 0.1; Platelet Count 184 10^3/uL (150-450); Red Cell Distribution Width 15 % (10-15); White Blood Count 10.4 10^3/uL (3.5-10.8)
[2019-02-17] MEDS: Ferrous Gluconate TAB* 324 MG TAB PO SCH ×2 (09:47→21:24)
[2019-02-18] MEDS: Acetaminophen TAB* 325 MG PO PRN (00:07)
[2019-02-18] MEDS: Ibuprofen TAB* 600 MG PO PRN ×2 (02:24→08:48)
[2019-02-18] MEDS: Ferrous Gluconate TAB* 324 MG TAB PO SCH (08:48)
[2019-02-18] MEDS: Docusate CAP* 100 MG PO SCH (08:48)
[2019-02-18] MEDS ORDERED: Varicella Virus Vaccine Live* 0.5 ML VIAL SUBCUT ONE (12:00)
[2019-02-18] MEDS ORDERED: Tetan/Diph/Pertus SYR(Tdap)* 0.5 ML SYR(BOOSTRIX) use SYR IM ONE (12:00)
[2019-02-18 12:08] VITALS: BP 123/64
== END 2019-02-18 14:18 | disposition home or self-care (01) | DRG 560 ==
LOC: MCHOBOUT 08:05 → MCHOB 10:03
PROVIDERS: ADMIT Midwife; ATTEND Midwife
PROC: 10E0XZZ Delivery of Products of Conception, External Approach (ICD-10-PCS; principal; 2019-02-16)
PROC: 3E033VJ Introduction of Other Hormone into Peripheral Vein, Percutaneous Approach (ICD-10-PCS; 2019-02-16)
PROC: 10907ZC Drainage of Amniotic Fluid, Therapeutic from Products of Conception, Via Natural or Artificial Opening (ICD-10-PCS; 2019-02-16)
DX: O75.89 Other specified complications of labor and delivery (principal); Z37.0 Single live birth; R10.2 Pelvic and perineal pain; O99.824 Streptococcus B carrier state complicating childbirth; O90.81 Anemia of the puerperium; D64.9 Anemia, unspecified; Z3A.39 39 weeks gestation of pregnancy
CPT/HCPCS: 36415; 80307; 85025; 86850; 86900; 86901; 90715; A9270-GY; J2540; S0191

== ENCOUNTER → 2019-09-20 12:26 | Emergency (ER) | payer OTHER ==
[2019-09-20 13:15] LABS: ABS Lymphocytes 1.8 10^3/ul (1.0-4.8); ABS Monocytes 0.4 10^3/ul (0-0.8); ABS Neutrophils 9.7 10^3/ul (1.5-7.7); Eosinophil % 0.4 %; Hematocrit 35 % (35-47); Hemoglobin 12.2 g/dL (12.0-16.0); Lymphocyte % 14.9 %; Mean Corpuscular HGB Conc 35 g/dL (31-36); Mean Corpuscular Hemoglobin 32 pg (27-31); Mean Corpuscular Volume 93 fL (80-97); Mean Platelet Volume 7.4 fL (7.4-10.4); Nucleated Red Blood Cells % 0.1; Platelet Count 219 10^3/uL (150-450); Red Blood Count 3.79 10^6 /uL (3.70-4.87); Red Cell Distribution Width 13 % (10-15); White Blood Count 11.9 10^3/uL (3.5-10.8)
[2019-09-20 13:27] LABS: Albumin 3.8 g/dL (3.2-5.2); Albumin/Globulin Ratio 1.4 (1-3); BUN/Creatinine Ratio 25.5 (8-20); Calcium 8.9 mg/dL (8.6-10.3); EGFR African American 193.8 (>60); EGFR Non-African American 160.2 (>60); Globulin 2.8 g/dL (2-4); Potassium 3.9 mmol/L (3.5-5.0); Total Bilirubin 0.3 mg/dL (0.2-1.0); Total Protein 6.6 g/dL (6.4-8.9)
--- NOTE | 2019-09-20 13:45 | ED ---
GI/ HPI - HPI Summary HPI Summary: Patient is a 28 y/o F who is 12 weeks , A1, who presents to [facility] with complaints of abdominal cramping and vaginal bleeding. She states that she was having cramping this morning. Patient later got into her car with her partner, and while there, felt bleeding. Patient was brought to the hospital, she states that she had bleeding until she got to grape grower. Patient states that cramping and bleeding are resolved at present. She notes that she had significant vaginal bleeding at 12 weeks and 16/17 weeks during her previous . Patient carried this to full term. She is followed by Dr. Nathan, OB. She states that she saw him 09/15/19 and had an ultrasound done a week before, which was normal. Patient denies Hx of diabetes. Home medications and allergies are reviewed. - History of Current Complaint Chief Complaint: EDVaginalBleeding Time Seen by Provider: 09/20/19 12:41 Stated Complaint: 12 WEEKS PREG BLEEDING Hx Obtained From: Patient Hx Last Menstrual Period: 05/16/18 Onset/Duration: Resolved Timing: Intermittent Current Severity: None Pain Intensity: 0 Pain Characteristics: Cramping Associated Signs and Symptoms: Positive: Abdominal Pain Additional Signs & Symptoms: Positive: Vaginal Bleeding - Allergy/Home Medications Allergies/Adverse Reactions: Allergies Allergy/AdvReac Type Severity Reaction Status Date / Time No Known Allergies Allergy Verified 09/20/19 12:30 Home Medications: Home Medications 47/Iron/Folate 1/Dha [Pnv-Dha Softgel] 1 cap PO DAILY 12/13/18 [ History Confirmed 09/20/19] PMH/Surg Hx/FS Hx/Imm Hx Endocrine/Hematology History: Denies: Hx Diabetes, Hx Thyroid Disease Cardiovascular History: Denies: Hx Hypertension, Hx Pacemaker/ICD Respiratory History: Denies: Hx Asthma, Hx Chronic Obstructive Pulmonary Disease (COPD) GI History: Denies: Hx Ulcer History: Denies: Hx Kidney Infection, Other Problems/Disorders Sensory History: Denies: Hx Eye Prosthesis, Hx Hearing Aid Opthamlomology History: Denies: Hx Eye Prosthesis Neurological History: Denies: Hx Dementia Psychiatric History: Reports: Hx Anxiety, Hx Depression, Hx Inpatient Treatment - 2007, 2008 [facility], Hx Community Mental Health Tx - Hx of being [facility] at [facility]. 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 - Surgical History Surgery Procedure, Year, and Place: wisdom teeth Infectious Disease History: No Infectious Disease History: Reports: Hx Hepatitis - hep c Denies: Hx Clostridium Difficile, Hx Human Immunodeficiency Virus (HIV), Hx of Known/Suspected MRSA, Hx Shingles, Hx Tuberculosis, History Other Infectious Disease, Traveled Outside the [place] in Last 30 Days - Family History Known Family History: Positive: Cardiac Disease, Diabetes, Other - cancer, CVA and thyroid problems - Social History Alcohol Use: None Hx Substance Use: No Substance Use Type: Reports: None Substance Use Comment - Amount & Last Used: December 27 2014 hx. heroin Hx Tobacco Use: Yes Smoking Status (MU): Light Every Day Tobacco Smoker Type: Cigarettes Amount Used/How Often: quit in 01/2015 Have You Smoked in the Last Year: No Review of Systems Positive: Abdominal Pain Positive: other - vaginal bleeding All Other Systems Reviewed And Are Negative: Yes Physical Exam - Summary Physical Exam Summary: Constitutional: Well-developed, Well-nourished, Alert. (-) Distressed Skin: Warm, Dry HENT: Normocephalic; Atraumatic Eyes: Conjunctiva normal Neck: Musculoskeletal ROM normal neck. (-) JVD, (-) Stridor, (-) Tracheal deviation Cardio: Rhythm regular, rate normal, Heart sounds normal; Intact distal pulses; The pedal pulses are 2+ and symmetric. Radial pulses are 2+ and symmetric. (-) Murmur Pulmonary/Chest wall: Effort normal. (-) Respiratory distress, (-) Wheezes, (-) Rales Abd: Soft, (-) tenderness, (-) Distension, (-) Guarding, (-) Rebound Musculoskeletal: (-) Edema Lymph: (-) Cervical adenopathy Neuro: Alert, Oriented x3 Psych: Mood and affect Normal Triage Information Reviewed: Yes Vital Signs On Initial Exam: Initial Vitals Temp Pulse Resp BP Pulse Ox 97.5 F 109 16 127/81 97 09/20/19 12:28 09/20/19 12:28 09/20/19 12:28 09/20/19 12:28 09/20/19 12:28 Vital Signs Reviewed: Yes Procedures - Sedation Patient Received Moderate/Deep Sedation with Procedure: No Diagnostics - Vital Signs Vital Signs Temp Pulse Resp BP Pulse Ox 09/20/19 12:58 96 130/69 97 09/20/19 12:28 97.5 F 109 16 127/81 97 - Laboratory Lab Results: Lab Results 09/20/19 Range/Units 12:52 WBC 11.9 H (3.5-10.8) 10^3/uL RBC 3.79 (3.70-4.87) 10^6 /uL Hgb 12.2 (12.0-16.0) g/dL Hct 35 (35-47) % MCV 93 (80-97) fL MCH 32 H (27-31) pg MCHC 35 (31-36) g/dL RDW 13 (10-15) % Plt Count 219 (150-450) 10^3/uL MPV 7.4 (7.4-10.4) fL Neut % (Auto) 81.0 % Lymph % (Auto) 14.9 % Dawson % (Auto) 3.6 % Eos % (Auto) 0.4 % Baso % (Auto) 0.1 % Absolute Neuts (auto) 9.7 H (1.5-7.7) 10^3/ul Absolute Lymphs (auto) 1.8 (1.0-4.8) 10^3/ul Absolute Monos (auto) 0.4 (0-0.8) 10^3/ul Absolute Eos (auto) 0.0 (0-0.6) 10^3/ul Absolute Basos (auto) 0.0 (0-0.2) 10^3/ul Absolute Nucleated RBC 0.0 10^3/ul Nucleated RBC % 0.1 Result Diagrams: 09/20/19 12:52 09/20/19 12:52 Lab Statement: Any lab studies that have been ordered have been reviewed, and results considered in the medical decision making process. - Ultrasound ULTRASOUND Ultrasound Interpretation Completed By: Radiologist Summary of Ultrasound Findings: IMPRESSION: SINGLE LIVE INTRAUTERINE GESTATION AT 12 WEEKS, 2 DAYS BY CROWN-RUMP LENGTH. THERE IS A LARGE, 7.7 CM SUBCHORIONIC HEMORRHAGE ANTERIORLY AND INFERIORLY. FLUID IS NOTED. WITHIN THE ENDOCERVICAL CANAL, LIKELY REPRESENTING BLOOD. THIS REPORT WAS REVIEWED BY ED PHYSICIAN. GIGU Course/Dx - Course Course Of Treatment: Patient is a 28 y/o F who is 12 weeks , A1, who presents to [facility] with complaints of abdominal cramping and vaginal bleeding. She states that she was having cramping this morning. Patient later got into her car with her partner, and while there, felt bleeding. Patient was brought to the hospital, she states that she had bleeding until she got to grape grower. Patient states that cramping and bleeding are resolved at present. She notes that she had significant vaginal bleeding at 12 weeks and 16/17 weeks during her previous . Patient carried this to full term. She is followed by Dr. Nathan, OB. She states that she saw him 09/15/19 and had an ultrasound done a week before, which was normal. Patient denies Hx of diabetes. Patient declined pelvic exam. Physical exam is unremarkable otherwise. Bloodwork was obtained. Beta HCG was 195683.00. Abnormal values include WBC 11.9 , MCH 32, absolute neuts 9.7, creatinine 0.47, BUN/creatinine 25.5. US IMPRESSION: SINGLE LIVE INTRAUTERINE GESTATION AT 12 WEEKS, 2 DAYS BY CROWN- RUMP LENGTH. THERE IS A LARGE, 7.7 CM SUBCHORIONIC HEMORRHAGE ANTERIORLY AND INFERIORLY. FLUID IS NOTED. WITHIN THE ENDOCERVICAL CANAL, LIKELY REPRESENTING BLOOD. Patient's case was discussed with Dr. Nathan's BUSINESS WRITER, patient to be discharged to home and will follow up with Dr. Nathan within three days an as outpatient. - Diagnoses Provider Diagnoses: Subchorionic bleed - Physician Notifications Discussed Care Of Patient With: Bob Nathan Time Discussed With Above Provider: 14:22 Instructed by Provider To: Other - Patient's case was discussed with Dr. Nathan 's BUSINESS WRITER, patient to be discharged to home and will follow up with Dr. Nathan within three days an as outpatient. Discharge ED - Sign-Out/Discharge Documenting (check all that apply): Patient Departure - discharge - Discharge Plan Condition: Stable Disposition: HOME Patient Education Materials: Subchorionic Hemorrhage (ED) Referrals: Bob Nathan MD [Primary Care Provider] - 3 Days Additional Instructions: PLEASE RETURN TO ED FOR ANY NEW OR WORSENING SYMPTOMS. PLEASE FOLLOW UP WITH YOUR OB PHYSICIAN WITHIN THREE DAYS. - Billing Disposition and Condition Condition: STABLE Disposition: Home - Attestation Statements Document Initiated by Scribe: Yes Documenting Scribe: CHICO GRANT Provider For Whom Scribe is Documenting (Include Credential): MANOLO MCPHERSON DO Scribe Attestation: I, CHICO GRANT, scribed for MANOLO MCPHERSON DO on 09/20/19 at 1834. Scribe Documentation Reviewed: Yes Provider Attestation: The documentation as recorded by the scribeCHICO accurately reflects the service I personally performed and the decisions made by me, MANOLO MCPHERSON DO Status of Scribe Document: Viewed
[2019-09-20 14:03] LABS: HIV 4th Generation Nonreactive (Nonreactive)
[2019-09-20 14:33] VITALS: BP 113/68
[2019-09-20 16:06] LABS: Urine Appearance Clear; Urine Bilirubin Negative (Negative); Urine Blood 2+ (Negative); Urine Color Yellow; Urine Glucose Negative (Negative); Urine Ketones Negative (Negative); Urine Nitrite Negative (Negative); Urine Protein Negative (Negative); Urine Urobilinogen Negative (Negative)
[2019-09-20 16:11] LABS: Urine Bacteria Absent (Absent); Urine Red Blood Cell 3+(>10/hpf) (Absent); Urine Squamous Epithelial Cell Present (Absent); Urine White Blood Cell Trace(0-5/hpf) (Absent)
[2019-09-20 16:13] LABS: Urine Benzodiazepine Screen None Detected (None Detect); Urine Opiates Screen None Detected (None Detect)
[2019-09-21 13:49] LABS: Chlamydia trachomatis NAA Negative (Negative); Neisseria gonorrhoeae (GC) NAA Negative (Negative)
== END | disposition home or self-care (01) ==
LOC: ED 12:26
DX: O20.9 Hemorrhage in early pregnancy, unspecified (principal); R10.30 Lower abdominal pain, unspecified; Z3A.12 12 weeks gestation of pregnancy; F17.210 Nicotine dependence, cigarettes, uncomplicated
CPT/HCPCS: 36415; 76801; 80053; 80307; 81003; 81015; 84702; 85025; 87086; 87389; 87491; 87591; 99283; G0480

== ENCOUNTER 2020-03-19 06:01 | Inpatient (IN) ==
[2020-03-19] MEDS ORDERED: Lactated Ringers 1000 ml BAG 1,000 ML IV ONE (06:22)
[2020-03-19] MEDS ORDERED: OBEPIDURAL 250 ML EPIDURAL ONE (06:45)
[2020-03-19] MEDS ORDERED: Lactated Ringers 1000 ml BAG 1,000 ML IV SCH ×2 (07:00→11:00)
[2020-03-19 07:03] LABS: Urine Benzodiazepine Screen None Detected (None Detect); Urine Cannabinoids Screen None Detected (None Detect); Urine Opiates Screen None Detected (None Detect)
[2020-03-19 07:39] LABS: ABS Eosinophils 0.1 10^3/ul (0-0.6); ABS Lymphocytes 1.8 10^3/ul (1.0-4.8); ABS Monocytes 0.8 10^3/ul (0-0.8); ABS Neutrophils 9.7 10^3/ul (1.5-7.7); Eosinophil % 0.5 %; Hematocrit 30 % (35-47); Hemoglobin 10.4 g/dL (12.0-16.0); Lymphocyte % 14.7 %; Mean Corpuscular HGB Conc 35 g/dL (31-36); Mean Corpuscular Hemoglobin 32 pg (27-31); Mean Corpuscular Volume 90 fL (80-97); Mean Platelet Volume 7.4 fL (7.4-10.4); Platelet Count 221 10^3/uL (150-450); Red Blood Count 3.28 10^6 /uL (3.70-4.87); Red Cell Distribution Width 16 % (10-15); White Blood Count 12.5 10^3/uL (3.5-10.8)
[2020-03-19] MEDS ORDERED: Sodium Citrate/Citric Acid LIQ 15 ML UDC PO PRN (07:40)
[2020-03-19] MEDS ORDERED: Phenylephrine 40 mcg/mL 10mL (400mcg) SYRINGE IV PUSH PRN (07:40)
[2020-03-19] MEDS ORDERED: EPHEDrine (Pressors) 50 MG/ML VIAL IV PUSH PRN (07:40)
[2020-03-19] MEDS ORDERED: OBEPIDURAL 250 ML EPIDURAL SCH (08:00)
[2020-03-19 08:01] LABS: Albumin 3.5 g/dL (3.2-5.2); Calcium 8.6 mg/dL (8.6-10.3); Potassium 4.1 mmol/L (3.5-5.0); Total Bilirubin 0.4 mg/dL (0.2-1.0)
[2020-03-19 08:07] LABS: Albumin/Globulin Ratio 1.3 (1-3); BUN/Creatinine Ratio 16.7 (8-20); EGFR African American 163.9 (>60); EGFR Non-African American 135.4 (>60); Globulin 2.7 g/dL (2-4); Total Protein 6.2 g/dL (6.4-8.9)
[2020-03-19] MEDS ORDERED: Dibucaine 1% OINT 28.35 GM TUBE ONE (09:46)
[2020-03-19] MEDS ORDERED: Witch Hazel PAD JAR ONE (09:46)
[2020-03-19] MEDS ORDERED: Glycerin ADULT 2.4 gm SUPP PR PRN (10:02)
[2020-03-19] MEDS ORDERED: Witch Hazel PAD JAR TOPICAL PRN (10:02)
[2020-03-19] MEDS ORDERED: Dibucaine 1% OINT 28.35 GM TUBE PR PRN (10:02)
[2020-03-19] MEDS ORDERED: Oxytocin 10 UNITS/ML 1 ML VIAL ONE (10:13)
[2020-03-19] MEDS ORDERED: Oxytocin in LR 20 UNITS/1,000 ML BAG IVPB SCH (11:00)
[2020-03-20 09:36] LABS: ABS Eosinophils 0.1 10^3/ul (0-0.6); ABS Lymphocytes 1.9 10^3/ul (1.0-4.8); ABS Monocytes 0.8 10^3/ul (0-0.8); ABS Neutrophils 7.6 10^3/ul (1.5-7.7); Eosinophil % 0.6 %; Hematocrit 29 % (35-47); Hemoglobin 9.8 g/dL (12.0-16.0); Lymphocyte % 18.1 %; Mean Corpuscular HGB Conc 34 g/dL (31-36); Mean Corpuscular Hemoglobin 31 pg (27-31); Mean Corpuscular Volume 91 fL (80-97); Mean Platelet Volume 7.4 fL (7.4-10.4); Platelet Count 197 10^3/uL (150-450); Red Blood Count 3.15 10^6 /uL (3.70-4.87); Red Cell Distribution Width 17 % (10-15); White Blood Count 10.4 10^3/uL (3.5-10.8)
[2020-03-20] MEDS ORDERED: Nicotine PATCH 14 MG/24 HR PATCH TRANSDERM SCH ×2 (22:00)
[2020-03-21 08:07] VITALS: BP 115/55
== END 2020-03-21 12:30 | disposition home or self-care (01) | DRG 560 ==
LOC: MCHOBOUT 06:01 → MCHOB 06:22
PROVIDERS: ADMIT Obstetrics & Gynecology; ATTEND Obstetrics & Gynecology

== ENCOUNTER 2021-09-17 09:53 | Inpatient (IN) ==
[2021-09-17] MEDS ORDERED: Buffered Lidocaine 1% SYRIN 1 ml INTRADERM ONE (10:37)
[2021-09-17] MEDS ORDERED: Lactated Ringers 1000 ml BAG 1,000 ML IV ONE ×2 (10:37→18:30)
[2021-09-17] MEDS ORDERED: Lactated Ringers 1000 ml BAG 1,000 ML IV SCH ×2 (11:00→19:00)
[2021-09-17] MEDS ORDERED: Oxytocin in LR 20 UNITS/1,000 ML BAG IVPB SCH ×2 (12:00→22:00)
[2021-09-17 12:55] LABS: ABS Lymphocytes 1.7 10^3/ul (1.0-4.8); ABS Monocytes 0.5 10^3/ul (0-0.8); ABS Neutrophils 6.9 10^3/ul (1.5-7.7); Eosinophil % 0.5 %; Hematocrit 30 % (35-47); Lymphocyte % 18.2 %; Mean Corpuscular HGB Conc 34 g/dL (31-36); Mean Corpuscular Hemoglobin 30 pg (27-31); Mean Corpuscular Volume 90 fL (80-97); Mean Platelet Volume 7.3 fL (7.4-10.4); Platelet Count 256 10^3/uL (150-450); Red Blood Count 3.32 10^6 /uL (3.70-4.87); Red Cell Distribution Width 17 % (10-15); White Blood Count 9.2 10^3/uL (3.5-10.8)
[2021-09-17 13:28] LABS: Urine Benzodiazepine Screen None Detected (None Detect); Urine Cannabinoids Screen None Detected (None Detect); Urine Opiates Screen None Detected (None Detect)
[2021-09-17] MEDS ORDERED: OBEPIDURAL 250 ML EPIDURAL ONE (18:00)
[2021-09-17] MEDS ORDERED: Phenylephrine 40 mcg/mL 10mL (400mcg) SYRINGE IV PUSH PRN ×2 (18:30)
[2021-09-17] MEDS ORDERED: EPHEDrine (Pressors) 50 MG/ML VIAL IV PUSH PRN ×2 (18:30)
[2021-09-17] MEDS ORDERED: Sodium Citrate/Citric Acid LIQ 15 ML UDC PO PRN (18:30)
[2021-09-17] MEDS ORDERED: OBEPIDURAL 250 ML EPIDURAL SCH (19:00)
[2021-09-17 20:42] LABS: Urine Appearance Clear; Urine Bilirubin Negative (Negative); Urine Blood Negative (Negative); Urine Color Yellow; Urine Glucose Negative (Negative); Urine Ketones Trace (Negative); Urine Nitrite Negative (Negative); Urine Protein Negative (Negative); Urine Specific Gravity 1.023 (1.002-1.030); Urine Urobilinogen Positive (Negative)
[2021-09-17] MEDS ORDERED: Dibucaine 1% OINT 28.35 GM TUBE PR PRN (21:17)
[2021-09-17] MEDS ORDERED: Glycerin ADULT 2.4 gm SUPP PR PRN (21:17)
[2021-09-17] MEDS ORDERED: Witch Hazel PAD JAR TOPICAL PRN (21:17)
[2021-09-18 05:44] LABS: ABS Eosinophils 0.1 10^3/ul (0-0.6); ABS Lymphocytes 1.7 10^3/ul (1.0-4.8); ABS Monocytes 0.7 10^3/ul (0-0.8); Eosinophil % 0.5 %; Hematocrit 25 % (35-47); Hemoglobin 8.6 g/dL (12.0-16.0); Lymphocyte % 16.5 %; Mean Corpuscular HGB Conc 34 g/dL (31-36); Mean Corpuscular Hemoglobin 31 pg (27-31); Mean Corpuscular Volume 90 fL (80-97); Mean Platelet Volume 7.3 fL (7.4-10.4); Platelet Count 198 10^3/uL (150-450); Red Cell Distribution Width 16 % (10-15); White Blood Count 10.5 10^3/uL (3.5-10.8)
[2021-09-18] MEDS ORDERED: Tetan/Diph/Pertus SYR(Tdap) 0.5 ML SYR(BOOSTRIX) use SYR contains LATEX IM ONE (09:00)
[2021-09-18] MEDS ORDERED: Nicotine PATCH 14 MG/24 HR PATCH TRANSDERM SCH (23:00)
[2021-09-19 07:54] VITALS: BP 107/47
== END 2021-09-19 16:45 | disposition home or self-care (01) | DRG 560 ==
LOC: MCHOBOUT 09:53 → MCHOB 10:38
PROVIDERS: ADMIT Midwife; ATTEND Midwife